=== PATIENT | male | born 1955 | race Caucasian/White ===

== ENCOUNTER 2024-04-28 10:18 | Inpatient (IN) | payer MEDICARE, BC, SELFPAY ==
[2024-04-28] VITALS (24 sets, daily range): BP systolic 110–159; BP diastolic 63–87; BMI 37.8
[2024-04-28] MEDS: NSS 353 ML IV (07:15)
[2024-04-28] MEDS: LOW STRENGTH ASPIRIN 324 MG PO (07:29)
[2024-04-28 07:44] LABS: Glucose - Point of Care 134 mg/dl (70-99)
--- NOTE | 2024-04-28 08:27 | ITS.CL.CATH ---
Tobacco Flavorer - Catheterization
Cardiac Catheterization
Procedure Report:
LEFT HEART CATHETERIZATION
Date of Procedure: April 28, 2024
Procedures performed:
1: Coronary angiography
2: Left ventricular hemodynamic assessment
Primary Care Physician: Dr. Jacques Sandra
Primary Hospice Nurse Practitioner: Dr. Graham Partida
INDICATION: The patient is a 68-year-old man with a past medical history significant for hypertension, wzh-cppsfwc-siwuqfouz diabetes, paroxysmal atrial fibrillation on Xarelto, status post pacemaker placement for tachybradycardia syndrome, obesity,
and ongoing smoking who presents for cardiac catheterization after an abnormal stress test. Xarelto was held for the procedure.
ACCESS: The patient was prepped and draped in usual sterile fashion. A 6 Italian sheath was placed in the right radial artery using the Seldinger over the wire technique.
HEMODYNAMIC FINDINGS (mmHg):
LV(s/d,EDP): 135/18, 21
Ao(s/d,m): 135/82, 104
ANGIOGRAPHIC FINDINGS:
Single-plane Left Ventriculography in MACIAS Projection: Not done. Echocardiogram performed on March 29, 2024 showed a visually estimated ejection fraction of 50 to 55% with no significant valvular disease.
Coronary Angiography:
Dominance: Right
Left Main: Hazy distal 50% stenosis in large caliber vessel.
Left Anterior Descending: The left anterior descending artery is a medium caliber vessel that has moderate nonobstructive luminal irregularities throughout its course. There is a area of proximal aneurysmal disease best appreciated in the MACIAS
caudal projection noted. There appears to be a high diagonal branch which is a medium to large caliber vessel that also has diffuse moderate disease and arises from the the aneurysmal portion of the LAD. The mid LAD has moderate diffuse luminal
irregularities with at worst a smooth 40 to 50% stenosis. The LAD gives rise to several small to medium caliber diagonal branches that appear patent with diffuse luminal irregularity but no clear obstructive disease. The apical LAD provides
collaterals to the distal PDA.
Ramus intermedius: There is a large ramus intermedius branch present that has smooth 40% proximal stenosis but appears to be a reasonable distal target.
Left Circumflex: The circumflex is a small to medium caliber nondominant system that gives rise to 2 major obtuse marginal branches. The first obtuse marginal branch is a medium caliber vessel and has diffuse proximal 70% disease with normal distal
flow. The circumflex terminates in a distal OM 2 which is a larger caliber vessel that has a mid 50% stenosis.
Right Coronary: The right coronary artery is a large-caliber vessel that gives rise to a small caliber posterior descending artery and large posterior left ventricular branch system. The right has an eccentric 90% stenosis in the distal vessel just
beyond the acute margin. There is a small aneurysmal area in the proximal PLV branch. The PLV branch gives 2 large vessels distally which appear to be reasonable surgical targets and have GAVIN-3 flow. The posterior descending artery has a smooth
ostial long 60% stenosis with competitive distal flow in the PDA from the LAD collaterals.
Fluoroscopy Time (min): 2.4
Radiation Dose (mGy): 437
DAP (Gy.cm2): 29
Closure device: None. A TR band was applied for hemostasis at the right wrist.
Complications: None.
ASSESSMENT:
1: Obstructive three-vessel coronary disease including left main disease as described above
CONCLUSIONS and RECOMMENDATIONS:
1: CT surgical evaluation for CABG.
Sergey Jenkins M.D.
Copy to: Dr. Jacques Sandra
[2024-04-28] MEDS: NSS 1000 IV (08:34)
[2024-04-28 08:43] LABS: Glucose - Point of Care 147 mg/dl (70-99)
--- NOTE | 2024-04-28 09:07 | CONSULT.CT ---
Consultation
-
Date/Time Consultation Requested: 04/28 899
Date/Time Consultation Performed: 04/28 906
Requesting Provider: Damon Jenkins MD
Performing Provider: Mara WADE for Daniel SHANKS
Reason for Consultation: CABG Eval
Patient History
Physicians
Family Physician: Dr. Jacques Sandra
Outpatient Inside Tester: Dr. Graham Partida
Inpatient Inside Tester: Gregory
History of Present Illness
68-year-old male with past medical history significant for HTN, voh-fuibtba-dmxihmxmq diabetes, PVI, PAF on Xarelto, tachybradycardia syndrome s/p Biotronik pacemaker placement, obesity, smoker presents on 04/28 for a left heart cath after an
abnormal stress test. Left heart cath revealed multivessel disease and CT surgery was consulted for surgical evaluation.
Past Medical History
Past Medical History: Other
1. Recurrent atrial flutter, status post PVI.
2. History of PAF.
3. PVI on April 07 2017.
4. Sick sinus syndrome status post Biotronik pacemaker.
5. Morbid obesity.
6. Type 2 diabetes.
7. Hyperlipidemia.
8. Ongoing tobacco abuse (1PPD)
9. Presumed obstructive sleep apnea.
10.GERD.
11.Osteoarthritis.
12. [place] palsy
13. Depression 2/2 to passing away from pancreatic cancer and granddaughter having leukemia
Past Surgical History
Past Surgical History: Other
PPM
PVI
Dental History
last visit 2 years ago
Family History
Mother: N/A
Father: N/A
Family Medical History: Other (unknown)
Social History
Alcohol: None
Drug: None
Tobacco: Smoker (1 PPD)
Personal: ( recent )
Living: With Family
Employment: Employed
Allergies
Allergy/AdvReac Type Severity Reaction Status Date / Time
Tsgyilr-NBT-IeK Reductase Allergy myalgias Verified 04/28/24 07:06
Inhibitor
fish Allergy Nausea / Uncoded 04/28/24 07:04
Vomiting
Home Medications
�Medication �Instructions �Recorded �Confirmed �Type
desloratadine 5 mg tablet 5 mg PO DAILYPRN PRN allergies 04/07/17 04/28/24 History
(Clarinex)
diltiazem HCl 360 mg capsule,24 360 mg PO HS 04/07/17 04/28/24 History
hr,extended release
fenofibrate nanocrystallized 145 145 mg PO HS 04/07/17 04/28/24 History
mg tablet
lorazepam 1 mg tablet 1 mg PO BIDPRN PRN anxiety 04/07/17 04/28/24 History
rabeprazole 20 mg tablet,delayed 20 mg PO QPM 04/07/17 04/28/24 History
release (AcipHex)
metformin 1,000 mg tablet 1,000 mg PO BID ##0 04/08/17 04/28/24 Rx
dofetilide 250 mcg capsule 250 mcg PO BID 04/28/24 04/28/24 History
evolocumab 140 mg/mL subcutaneous 140 mg SC Q2W 04/28/24 04/28/24 History
pen injector (Repathdi Shepherd)
famotidine 20 mg tablet 20 mg PO BID 04/28/24 04/28/24 History
fluoxetine 20 mg tablet 20 mg PO DAILY 04/28/24 04/28/24 History
latanoprost 0.005 % eye drops 1 drp ophthalmic (eye) HS 04/28/24 04/28/24 History
montelukast 10 mg tablet 10 mg PO HS 04/28/24 04/28/24 History
pioglitazone 30 mg tablet 30 mg PO HS 04/28/24 04/28/24 History
repaglinide 1 mg tablet 1 mg PO TID 04/28/24 04/28/24 History
rivaroxaban 20 mg tablet (Xarelto) 20 mg PO DAILY 04/28/24 04/28/24 History
Review of Systems
-
History Source: Patient
General: Reports No Symptoms
HEENT: Reports No Symptoms
Respiratory: Reports SOB
Cardiac: Reports Chest Pain
Abdomen/GI: Reports Reflux, Ulcers and Other (H. Pylori)
: Reports No Symptoms
Musculoskeletal: Reports No Symptoms
Skin: Reports No Symptoms
Neurological: Reports Weakness (Arm weakness)
Vascular: Reports No Symptoms
Physical Exam
Vital Signs
Temp 97.7 F 04/28/24 07:06
Temp route: Oral 04/28/24 06:40
Pulse 81 04/28/24 08:25
Blood pressure 132/78 04/28/24 08:25
Blood pressure extremity used: Left upper arm 04/28/24 08:13
Position: Sitting 04/28/24 08:13
MAP (cuff-Aleta Monitor) 96 04/28/24 08:25
SaO2 93 04/28/24 08:25
Oxygen Mode of Delivery Room air 04/28/24 08:43
Can the patient verbally communicate their pain? Yes 04/28/24 08:43
Actual Weight 117.7 kg 04/28/24 07:35
Body Mass Index (BMI) 37.8 04/28/24 07:35
Labs
Lab Results
04/28/24 09:28
APTT 42.5 Sec (23.4-35.0) H 04/28/24 09:28
Diagnostic Studies
LHC results
Coronary Angiography:
Dominance: Right
Left Main: Hazy distal 50% stenosis in large caliber vessel.
Left Anterior Descending: The left anterior descending artery is a medium caliber vessel that has moderate nonobstructive luminal irregularities throughout its course. There is a area of proximal aneurysmal disease best appreciated in the MACIAS
caudal projection noted. There appears to be a high diagonal branch which is a medium to large caliber vessel that also has diffuse moderate disease and arises from the the aneurysmal portion of the LAD. The mid LAD has moderate diffuse luminal
irregularities with at worst a smooth 40 to 50% stenosis. The LAD gives rise to several small to medium caliber diagonal branches that appear patent with diffuse luminal irregularity but no clear obstructive disease. The apical LAD provides
collaterals to the distal PDA.
Ramus intermedius: There is a large ramus intermedius branch present that has smooth 40% proximal stenosis but appears to be a reasonable distal target.
Left Circumflex: The circumflex is a small to medium caliber nondominant system that gives rise to 2 major obtuse marginal branches. The first obtuse marginal branch is a medium caliber vessel and has diffuse proximal 70% disease with normal distal
flow. The circumflex terminates in a distal OM 2 which is a larger caliber vessel that has a mid 50% stenosis.
Right Coronary: The right coronary artery is a large-caliber vessel that gives rise to a small caliber posterior descending artery and large posterior left ventricular branch system. The right has an eccentric 90% stenosis in the distal vessel just
beyond the acute margin. There is a small aneurysmal area in the proximal PLV branch. The PLV branch gives 2 large vessels distally which appear to be reasonable surgical targets and have GAVIN-3 flow. The posterior descending artery has a smooth
ostial long 60% stenosis with competitive distal flow in the PDA from the LAD collaterals.
Exam
General: Well Developed and Well Nourished
HEENT: Moist Mucous Membranes
Neck: Other (WIDE)
Respiratory: Clear
Cardiac: S1/S2 and Regular Rhythm
GI: Soft and Other (Obese)
Rectal: Deferred by Provider
Skin: Warm and Dry
Neuro: AO x 3
Lymph: No Lymphadenopathy
Psych: Calm
Assessment / Plan
-
68-year-old male with past medical history listed above presents to [facility] for an elective left heart cath. Left heart cath revealed multivessel disease and CT surgery was consulted for CABG evaluation.
#CAD
-Patient's case will be discussed with attending physician. Further details regarding surgical timing intervention will be determined after attending physicians full evaluation
-Routine preoperative cardiothoracic surgery orders will be initiated.
-STS risk stratification score will be calculated after preoperative testing is complete
-Continue heparin gtt per cardiology; last dose Xarelto on 04/27
--- NOTE | 2024-04-28 09:32 | PTCARENOTE ---
CV PA at pt bedside speaking to pt and pt's friend Elisha.
[2024-04-28 09:39] LABS: Hemoglobin 13.1 g/dL (13.0-18.0); Mean Corp Hgb Conc. 33.6 g/dL (33.0-37.0); Mean Corpuscular Hgb 30.9 pg (27.0-31.0); Mean Platelet Volume 10.2 fL (7.4-10.4); Platelet Count 303 10^3/uL (130-400); Red Blood Cell Count 4.24 10^6/uL (4.70-6.10); Red Cell Dist. Width 13.4 % (11.5-14.5); White Blood Cell Count 8.2 10^3/uL (4.8-10.8)
[2024-04-28 09:45] LABS: APTT 42.5 Sec (23.4-35.0)
[2024-04-28] MEDS: NOVOLOG FLEXPEN-MODERATE RESISTANCE SC ×2 (13:28→18:01)
--- NOTE | 2024-04-28 13:30 | PTCARENOTE ---
Rec'd report from Darline Fuentes in the [facility] [place] [facility]; Rec'd pt AAOX3 w/no c/o CP or SOB. Pt does report feeling 'anxious' r/t news of needing open heart surgery. Pt's VSS w/HR in the 80's & BP on arrival 141/75. Pt is SR w/occas RAILROAD CROSSING PROTECTION MAINTAINER on telemetry monitoring.
Pt w/ R radial site w/dressing C/D/I w/no signs or symptoms of bleeding or hematoma. Discussed plan of care & oriented pt to . Pt w/call bautista within reach & plan of care ongoing.
[2024-04-28] MEDS: HEPARIN 25000 UNITS/250 ML IV (14:06)
[2024-04-28] MEDS: FLUSH (NSS) 1 FLUSH IV (14:08)
--- NOTE | 2024-04-28 14:56 | CM ---
Reviewed chart. Met with Mr. Boyd to review discharge plans. He states prior to admission he resides with his daughter and three grandchildren in a bi-level home. He has three steps to get to into the home thru the basement, eighteen steps
from the deck and three steps to get in from the front. He states prior to admission he was independent with ambulation and adls. He states he has a bi-pap machine and Nebulizer at home. He states he has a prescription plan with [facility]
order and uses [facility] when needed. He states his spouse fifteen month ago from cancer. He was for 49 years. He states his oldest granddaughter age 21 was diagnosed with Leukemia when she was 20 years old. She had
DNA replacement therapy at [facility] and has been in recovery. He states he sees a psychologist at [facility] for the last three years. He is being worked up for heart surgery. Medical work-up in progress. The discharge plan is to return home
with his family when medically stable.
[2024-04-28] MEDS: PRANDIN 1 MG PO (17:40)
[2024-04-28] MEDS: PROTONIX 40 MG PO (17:40)
[2024-04-28 17:44] LABS: Glucose - Point of Care 141 mg/dl (70-99)
[2024-04-28] MEDS: PEPCID 20 MG PO (20:35)
[2024-04-28] MEDS: TIKOSYN 250 MCG PO (20:35)
--- NOTE | 2024-04-28 21:20 | PTCARENOTE ---
Rec'd at change of shift. VSS, SR on TELE monitor, and AAO*3. Pt denies any pain or discomfort. Heparin infusing at 1400 Units per hour per protocol. R radial site CDI, and pt verbalizes understanding of R limb restriction. Pt updated of plan
of care and resting with call bautista in reach. See flowchart and MAR for full pt assessment and care.
[2024-04-28 21:30] LABS: APTT 35.1 Sec (23.4-35.0)
[2024-04-28 21:43] LABS: Glucose - Point of Care 114 mg/dl (70-99)
[2024-04-28] MEDS: CARDIZEM CD 360 MG PO (23:19)
[2024-04-28] MEDS: TRICOR 145 MG PO (23:19)
[2024-04-28] MEDS: XALATAN OPHTHALMIC SOLUTION 1 DROP BOTH EYES (23:19)
[2024-04-28] MEDS: SINGULAIR 10 MG PO (23:22)
[2024-04-28] MEDS: ACTOS 30 MG PO (23:37)
[2024-04-29 03:25] VITALS: BP 140/74
[2024-04-29 03:48] VITALS: BMI 36.9
[2024-04-29 04:26] LABS: Hematocrit 38.1 % (39.0-52.0); Hemoglobin 13.1 g/dL (13.0-18.0); Mean Corp Hgb Conc. 34.4 g/dL (33.0-37.0); Mean Corpuscular Hgb 31.5 pg (27.0-31.0); Mean Corpuscular Volume 91.6 fL (80.0-94.0); Mean Platelet Volume 10.6 fL (7.4-10.4); Platelet Count 312 10^3/uL (130-400); Red Blood Cell Count 4.16 10^6/uL (4.70-6.10); Red Cell Dist. Width 13.4 % (11.5-14.5); White Blood Cell Count 7.6 10^3/uL (4.8-10.8)
[2024-04-29 04:30] LABS: INR 1.04; PT 14.1 Sec (11.4-14.6)
[2024-04-29 04:39] LABS: Carbon Dioxide 23 mmol/L (22-30)
[2024-04-29 04:50] LABS: ALT (SGPT) 27 U/L (0-50); AST (SGOT) 38 U/L (17-59); Alkaline Phosphatase 85 U/L (38-126); Blood Urea Nitrogen 23 mg/dl (9-20); Calcium 9.7 mg/dl (8.4-10.2); Chloride 104 mmol/L (98-107); Direct Bilirubin 0.1 mg/dl (0.0-0.4); Estimated Creatinine Clearance 110 ml/min; Glucose 131 mg/dl (70-99); HDL Cholesterol 41 mg/dl; LDL Cholesterol, Calculated 69 mg/dl; Potassium 4.3 mmol/L (3.5-5.1); Sodium 136 mmol/L (135-145); Total Bilirubin 0.4 mg/dl (0.2-1.3); Total Cholesterol 142 mg/dl (50-199); Total Protein 6.6 g/dl (6.3-8.2); Triglyceride 163 mg/dl (10-149); Very Low Density Lipoprotein 32 mg/dl (0-30); eGFR > 60.00
[2024-04-29] MEDS: HEPARIN 25000 UNITS/250 ML IV ×2 (06:41→22:04)
[2024-04-29 07:07] VITALS: BP 120/74
[2024-04-29] MEDS: PROZAC 20 MG PO (08:01)
[2024-04-29] MEDS: PEPCID 20 MG PO ×2 (08:01→20:08)
[2024-04-29] MEDS: TIKOSYN 250 MCG PO ×2 (08:01→20:08)
[2024-04-29] MEDS: PRANDIN 1 MG PO ×3 (08:02→17:35)
[2024-04-29 08:36] LABS: Glucose - Point of Care 139 mg/dl (70-99)
[2024-04-29] MEDS: NOVOLOG FLEXPEN-MODERATE RESISTANCE SC (09:21)
--- NOTE | 2024-04-29 09:58 | W.PN.CARDCBS ---
Addendum entered and electronically signed by Clayton Arreaga MD 04/29/24 18:01:
No Chest pain or SOB
RRR, Nl S1 and S2, no S3 or S4
Lungs are clear B/L
Assessment:
Abnormal outpatient stress test 04/14/2024
Multi vessel CAD by cath 04/28/24
Hazy distal LM stenosis, LAD with moderate nonobstructive CAD and proximal aneurysmal disease, ramus with smooth 40% proximal stenosis that appears to be a reasonable distal target, OM�1 with proximal 70% disease and normal distal flow, distal OM�2
with mid 50% stenosis, RCA is a large-caliber with 90% eccentric stenosis in the distal vessel by cath 04/28/2024HTN
DM 2
Paroxysmal Afib
s/p PVI 28mm cryoballoon 03/2017Paroxysmal typical atrial flutter
PPM, Biotronik 10/2016
Device check [facility] office showed primarily SR, not pacer dependent, battery longevity listed at 55% 04/20/2024Hyperlipidemia
Ongoing tobacco abuse
Smoked 1 PPD since age 13Presumed obstructive sleep apnea
ECHO 04/29/24:
Normal left ventricular size, wall thickness and systolic function. No regional wall motion abnormalities are seen. LV ejection fraction is 50-55%.
Normal right ventricular size and function.
No significant valvular dz.
Dilated aortic root. Sinus of Valsalva measures 3.9 cm. Sinotubular junction measures 2.7 cm. Normal ascending aorta.
Recommendations:
He is symptom free at present
Continue heparin infusion
CT surgical evaluation for CABG is ongoing
Nl LV function and no significant valvular dz by echo
Last dose Xarelto on 04/[address] surgical consideration for JULIANNE clipping as well as MAZE given ongoing arrhythmias requiring dofetilide
Ongoing tobacco abuse (Smoked 1 PPD since age 13) as well as presumed obstructive sleep apnea
PFTs are pending
Original Note:
Today's Communication / Plan
-
Heparin gtt renewed
Check echo
51 min in coordination of care as noted
Impression / Plan
-
PCP: Dr. Jacques Sandra
Cardiology: ATC
Impression:
Abnormal outpatient stress test 04/14/2024
MV CAD by cath 04/28/24
Hazy distal LM stenosis, LAD with moderate nonobstructive CAD and an area of proximal aneurysmal disease, ramus with smooth 40% proximal stenosis that appears to be a reasonable distal target, OM�1 with proximal 70% disease and normal distal flow,
distal OM�2 with mid 50% stenosis, RCA is a large-caliber with 90% eccentric stenosis in the distal vessel by cath 04/28/2024
HTN
DM 2
Paroxysmal Afib
s/p PVI 28mm cryoballoon 03/2017
Paroxysmal typical atrial flutter
PPM, Biotronik 10/2016
Device check [facility] office showed primarily SR, not pacer dependent, battery longevity listed at 55% 04/20/2024
Hyperlipidemia
Ongoing tobacco abuse
Smoked 1 PPD since age 13
Presumed obstructive sleep apnea
GERD
Osteoarthritis
[place]gu[place]'s palsy
Lexiscan stress test 04/14/2024: Modified Prem protocol and only reached 80% MPHR with 3.4 METS of activity, chest pain with stress, predominantly reversible, moderate intensity defect in the basal to apical inferior segments suggesting RCA ischemia
Echo 03/29/24: Normal biventricular systolic function, unable to estimate RVSP, no /AR
Echo 04/29/24: Study pending
Plan:
Patient came to for an elective LHC on 04/28/2024 after an abnormal outpatient stress test through [facility]C at [facility] on 04/14/2024. On cardiac cath patient was found to have MV CAD as outlined above. CT surgery is now consulted.
-Records from the ATC office reviewed and summarized above by me. Last echo was 03/29/2024, will repeat echo 04/29/2024, ordered by me
-CT surgery consult reviewed and patient undergoing testing and waiting to talk to surgeon 04/29/2024
-LDL 69 and outpatient dose of fenofibrate 145 mg at bedtime has been continued. Patient is also on Repatha 140 mg SQ every 2 weeks and reports that he previously had myalgias with all statin medications.
-ECG from 04/29/2024 reviewed by me is atrial paced and it looks like SR.
-Patient has a history of paroxysmal A-fib with previous PVI in 2018 but also history of typical atrial flutter. Patient is currently on dofetilide 250 mcg twice daily and QTc 436 ms by ECG 04/29/2024
-Outpatient dose of Xarelto 20 mg daily has been on hold leading up to cardiac cath. Patient currently ordered heparin gtt, renewed by me 04/29/24. There is no known history of thromboembolic event
-Patient has smoked 1 PPD since age 13. PFTs pending.
HPI: The patient is a 68-year-old man with a past medical history significant for hypertension, nnd-zkyhhbz-rrkzcpalk diabetes, paroxysmal atrial fibrillation on Xarelto, status post pacemaker placement for tachybradycardia syndrome, obesity, and
ongoing smoking who presents for cardiac catheterization after an abnormal stress test. Xarelto was held for the procedure.
Progress Note - Surface Miner
Subjective
Date of Service: April 29, 2024
No chest pain
Objective
Labs:
04/29/24 03:41
04/29/24 03:41
Labs
Hgb 13.1 g/dL (13.0-18.0) 04/29/24 03:41
Hct 38.1 % (39.0-52.0) L 04/29/24 03:41
Plt Count 312 10^3/uL (130-400) 04/29/24 03:41
PT 14.1 Sec (11.4-14.6) 04/29/24 03:41
INR 1.04 04/29/24 03:41
APTT 36.0 Sec (23.4-35.0) H 04/29/24 03:41
Sodium 136 mmol/L (135-145) 04/29/24 03:41
Potassium 4.3 mmol/L (3.5-5.1) 04/29/24 03:41
BUN 23 mg/dl (9-20) H 04/29/24 03:41
Creatinine 0.8 mg/dL (0.7-1.3) 04/29/24 03:41
Glucose 131 mg/dl (70-99) H 04/29/24 03:41
Vital Signs and I&O:
Vital Signs
Temp Pulse Resp BP Pulse Ox
98 F 69 20 140/74 94
04/29/24 07:07 04/29/24 05:00 04/29/24 07:07 04/29/24 03:25 04/29/24 07:07
Vital Signs
Temp Pulse Resp BP Pulse Ox
98 F 69 20 140/74 94
04/29/24 07:07 04/29/24 05:00 04/29/24 07:07 04/29/24 03:25 04/29/24 07:07
Intake & Output
04/27/24 04/28/24 04/29/24 04/30/24
06:59 06:59 06:59 06:59
Intake Total 2973 / 2973
Output Total 1060 / 1060
Balance 1912
Physical Exam
Physical Exam
GEN: AAOx3
HEENT: MMM
LUNGS: RA. No audible wheeze
CV: A paced on tele. Looks like SR. No murmur
ABD: ND
EXT: No edema B/L
NEURO: Gross non-focal
SKIN: No rash
[2024-04-29 10:25] LABS: Glycohemoglobin (HgbA1c) 6.7 % (4.0-5.6)
[2024-04-29 11:29] VITALS: BP 142/73
--- NOTE | 2024-04-29 12:21 | CM ---
Reviewed chart. Met with Mr. Boyd to review discharge plans. He states he is feeling okay. Prior to admission his daughter and three grandchildren reside with him in a bi-level home with three steps to enter. He has eighteen steps to get to
get into the home from the deck. Prior to admission he was independent with ambulation and adls. He has a bi-pap machine and Nebulizer at home. He has a prescription plan with [facility] and uses [facility] when needed. He states
his daughter and three grandchildren will be around to assist in his care if needed .He also states a friend who is an RN has been stopping to see him everyday and she will continue to do so after surgery. Gave him the Cardiothoracic Surgery
Educational Booklet. Medical work-up in progress. The discharge plan s to return home with his daughter, three grandchildren, RN friend checking on him when medically stable.
[2024-04-29 12:43] LABS: APTT 47.9 Sec (23.4-35.0)
[2024-04-29] MEDS: NOVOLOG FLEXPEN-MODERATE RESISTANCE 1 UNITS SC ×2 (13:45→18:07)
[2024-04-29 13:50] LABS: Glucose - Point of Care 208 mg/dl (70-99)
[2024-04-29 17:22] VITALS: BP 142/99
[2024-04-29] MEDS: PROTONIX 40 MG PO (17:35)
[2024-04-29 17:51] LABS: Glucose - Point of Care 197 mg/dl (70-99)
[2024-04-29 19:01] VITALS: BP 143/75
[2024-04-29 19:45] LABS: APTT 63.2 Sec (23.4-35.0)
[2024-04-29 22:01] LABS: Glucose - Point of Care 172 mg/dl (70-99)
[2024-04-29] MEDS: SINGULAIR 10 MG PO (22:06)
[2024-04-29] MEDS: TRICOR 145 MG PO (22:06)
[2024-04-29] MEDS: ACTOS 30 MG PO (22:06)
[2024-04-29] MEDS: CARDIZEM CD 360 MG PO (22:07)
[2024-04-29 22:09] VITALS: BP 156/93
[2024-04-29] MEDS: XALATAN OPHTHALMIC SOLUTION 1 DROP BOTH EYES (22:12)
[2024-04-30 02:07] LABS: Hematocrit 37.6 % (39.0-52.0); Hemoglobin 12.8 g/dL (13.0-18.0); Mean Corpuscular Hgb 30.9 pg (27.0-31.0); Mean Corpuscular Volume 90.8 fL (80.0-94.0); Platelet Count 318 10^3/uL (130-400); Red Blood Cell Count 4.14 10^6/uL (4.70-6.10); Red Cell Dist. Width 13.4 % (11.5-14.5); White Blood Cell Count 8.8 10^3/uL (4.8-10.8)
[2024-04-30 02:18] LABS: APTT 101.2 Sec (23.4-35.0)
[2024-04-30 02:50] VITALS: BP 110/66
[2024-04-30 02:52] LABS: Glucose - Point of Care 143 mg/dl (70-99)
[2024-04-30 02:54] VITALS: BMI 37.0
--- NOTE | 2024-04-30 06:09 | PTCARENOTE ---
NSR with Apaced on monitor. Pt denies pain or SOB. Heparin gtt adjusted per protocol. Pt using own CPAP at HS. Pt independent in the room.
[2024-04-30 07:05] VITALS: BP 128/74
[2024-04-30 07:08] LABS: Glucose - Point of Care 147 mg/dl (70-99)
--- NOTE | 2024-04-30 07:21 | W.PN.UPDATE ---
Update Note
Progress Note Update
Procedure Type:�Isolated CABG
Perioperative Outcome Estimate %
Operative Mortality 0.959%
Morbidity & Mortality 5.72%
Stroke 0.461%
Renal Failure 0.693%
Reoperation 1.37%
Prolonged Ventilation 3.68%
Deep Sternal Wound Infection 0.418%
Long Hospital Stay (>14 days) 4.03%
Short Hospital Stay (<6 days)* 42.6%
Clinical Summary
Planned Surgery: Isolated CABG, Urgent, First cardiovascular surgery
Demographics: 68 year old, White, male, 118kg, 177cm, BMI: 37.7 kg/m�
Lab Values: Creatinine: 0.8 mg/dL, Hematocrit: 38.1%, WBC Count: 7.6 10�/�L, Platelet Count: 497166 cells/�L
PreOp Medications: Oral diabetes control
Substance Abuse: Current smoker
Risk Factors / Comorbidities: Diabetes Mellitus
Pulmonary RF: Mild CLD, Sleep Apnea
Coronary Artery Disease: 3 vessels diseased, Unstable Angina
Valve Disease: Trivial/Trace TR
Arrhythmia: Remote A-fib
Tentative Surgery date is Friday05/03/[address] Sanchez
[2024-04-30] MEDS: NOVOLOG FLEXPEN-MODERATE RESISTANCE SC ×2 (07:57→14:36)
--- NOTE | 2024-04-30 08:56 | PTCARENOTE ---
Assumed care of pt from prev nsg shift; pt drowsy but easily arousable, AAOx3 w/no c/o CP or SOB. Pt w/VS stable w/HR in the 60's & BP 128/74 this AM. Pt is A-paced on telemetry monitoring. Pt w/ R radial site w/dressing C/D/I w/no signs or symptoms
of bleeding or hematoma. Pt w/call bautista within reach & plan of care ongoing.
[2024-04-30 09:03] LABS: APTT 112.1 Sec (23.4-35.0)
--- NOTE | 2024-04-30 09:29 | CM ---
Reviewed chart. Met with Mr. Boyd to review discharge plans. Prior to admission his daughter, and his three grandchildren reside with him in a bi-level home. He has three steps to enter the home from the front and eighteen steps from the deck.
Prior to admission he was independent with ambulation and adls. He has a Bi-pap Machine and Nebulizer at home. He has a prescription plan with [facility] and uses [facility] when needed. He states his daughter and grandchildren
will be around to assist in this care if needed. He also has a RN friend who stops by on a regular basis. Medical work-up in progress. The discharge plan is to return home with his daughter and grandchildren with a home visit by the Transitional
Care Nurse when medically stable.
We reviewed pre-op and post-op routines. We briefly reviewed the shower instructions. We reviewed restrictions including sternal precautions and driving restrictions. We discussed a home visit by the Transitional Care Nurse. He is agreeable to a
home visit. He already has the Cardiothoracic Surgery Educational Booklet. The plan is for CABG on Friday05/03/24.
[2024-04-30] MEDS: TIKOSYN 250 MCG PO ×2 (09:53→20:17)
[2024-04-30] MEDS: PRANDIN 1 MG PO ×2 (09:53→16:48)
[2024-04-30] MEDS: PEPCID 20 MG PO ×2 (09:53→20:17)
[2024-04-30] MEDS: PROZAC 20 MG PO (09:53)
--- NOTE | 2024-04-30 10:18 | W.PN.CARDCBS ---
Addendum entered and electronically signed by Andrea Villa MD 04/30/24 14:43:
I saw and examined the patient.
The [employer] Refrig[employer] Technician's note was reviewed and I agree with the note.
Comment: Briefly, 68-year-old man who presents following abnormal outpatient stress test for coronary angiography and was found to have multivessel CAD
Evaluated by CT surgery with tentative plan for CABG
Currently asymptomatic, not reporting any discomfort today
Aspirin 81mg daily for CAD
Statin intolerant by history
Maintained on Xarelto as an outpatient for history of paroxysmal A-fib and has been transitioned to heparin drip
Rest per Anna Marroquin
Original Note:
Today's Communication / Plan
-
Continue heparin gtt
No chest pain.
Tentatively planed for CABG Friday, 05/03.
Impression / Plan
-
PCP: Dr. Jacques Sandra
Cardiology: Dr. Philip Partida ([facility] Cardiology)
Impression:
Abnormal outpatient stress test 04/14/2024
MV CAD by cath 04/28/24
Hazy distal LM stenosis, LAD with moderate nonobstructive CAD and an area of proximal aneurysmal disease, ramus with smooth 40% proximal stenosis that appears to be a reasonable distal target, OM�1 with proximal 70% disease and normal distal flow,
distal OM�2 with mid 50% stenosis, RCA is a large-caliber with 90% eccentric stenosis in the distal vessel by cath 04/28/2024
HTN
DM 2
Paroxysmal Afib
s/p PVI 28mm cryoballoon 03/2017
Paroxysmal typical atrial flutter
PPM, Biotronik 10/2016
Device check ATC office showed primarily SR, not pacer dependent, battery longevity listed at 55% 04/20/2024
Hyperlipidemia
Ongoing tobacco abuse
Smoked 1 PPD since age 13
Presumed obstructive sleep apnea
GERD
Osteoarthritis
Olguin's palsy
Lexiscan stress test 04/14/2024: Modified Prem protocol and only reached 80% MPHR with 3.4 METS of activity, chest pain with stress, predominantly reversible, moderate intensity defect in the basal to apical inferior segments suggesting RCA ischemia
Echo 03/29/24: Normal biventricular systolic function, unable to estimate RVSP, no /AR
Echo 04/29/2024: EF 50-55%, aortic sclerosis, trace TR, estimated PAP 30-35mmHg, dilated aortic root, sinus of valsalva measures 3.9cm
Plan:
-Patient came to for an elective LHC on 04/28/2024 after an abnormal outpatient stress test through ATC at [facility] on 04/14/2024. On cardiac cath patient was found to have MV CAD as outlined above.
-CT surgery evaluation ongoing. Plan is tentatively to go to OR 05/03/2024.
-Echo 04/29 with preserved EF, no significant valvular disease as noted above.
-No complaints, feeling well overnight. No chest pain or SOB.
-LDL 69. Continues on fenofibrate. h/o myalgia w/ all statin medications, on Repatha as OP, would continue.
-Known h/o paroxysmal afib w/ prior PVI in 2018. No arrhythmias noted on tele.
-Continue dofetilide 250 mcg BID and cardizem cd 360mg daily.
-Xarelto on hold for cath/surgery. Continue heparin gtt.
-h/o significant anxiety. Takes lorazepam 1mg prn at home. This has been ordered.
HPI: The patient is a 68-year-old man with a past medical history significant for hypertension, ced-wvnzqyl-udrlblogx diabetes, paroxysmal atrial fibrillation on Xarelto, status post pacemaker placement for tachybradycardia syndrome, obesity, and
ongoing smoking who presents for cardiac catheterization after an abnormal stress test. Xarelto was held for the procedure.
Progress Note - Accountant Controller
Subjective
Date of Service: April 30, 2024
Feeling well. No complaints.
Objective
Labs:
04/30/24 01:59
04/29/24 03:41
Labs
Hgb 12.8 g/dL (13.0-18.0) L 04/30/24 01:59
Hct 37.6 % (39.0-52.0) L 04/30/24 01:59
Plt Count 318 10^3/uL (130-400) 04/30/24 01:59
PT 14.1 Sec (11.4-14.6) 04/29/24 03:41
INR 1.04 04/29/24 03:41
APTT 112.1 Sec (23.4-35.0) H 04/30/24 08:35
Sodium 136 mmol/L (135-145) 04/29/24 03:41
Potassium 4.3 mmol/L (3.5-5.1) 04/29/24 03:41
BUN 23 mg/dl (9-20) H 04/29/24 03:41
Creatinine 0.8 mg/dL (0.7-1.3) 04/29/24 03:41
Glucose 131 mg/dl (70-99) H 04/29/24 03:41
Vital Signs and I&O:
Vital Signs
Temp Pulse Resp BP Pulse Ox
97.8 F 64 20 128/74 93
04/30/24 07:08 04/30/24 07:05 04/30/24 07:08 04/30/24 07:05 04/30/24 07:08
Vital Signs
Temp Pulse Resp BP Pulse Ox
97.8 F 64 20 128/74 93
04/30/24 07:08 04/30/24 07:05 04/30/24 07:08 04/30/24 07:05 04/30/24 07:08
Intake & Output
04/28/24 04/29/24 04/30/24 05/01/24
06:59 06:59 06:59 06:59
Intake Total 2973 / 2973
Output Total 1060 / 1060
Balance 1913 / 1913
Physical Exam
Physical Exam
GEN: AAOx3
HEENT: MMM
LUNGS: RA. No audible wheeze
CV: Reg, no murmur, rubs, or gallops
EXT: No clubbing, cyanosis, or edema B/L
NEURO: Gross non-focal
SKIN: Warm, dry, no rash
[2024-04-30] MEDS: HEPARIN 25000 UNITS/250 ML IV ×2 (10:39→23:01)
[2024-04-30 11:39] VITALS: BP 135/81
[2024-04-30 14:22] LABS: Glucose - Point of Care 195 mg/dl (70-99)
[2024-04-30] MEDS: PRANDIN PO (14:37)
[2024-04-30 14:59] VITALS: BP 132/62
[2024-04-30] MEDS: ASPIR LOW (ENTERIC COATED) 81 MG PO (16:08)
[2024-04-30 16:37] LABS: APTT 77.6 Sec (23.4-35.0)
[2024-04-30] MEDS: PROTONIX 40 MG PO (16:48)
[2024-04-30 18:34] LABS: Glucose - Point of Care 228 mg/dl (70-99)
[2024-04-30] MEDS: NOVOLOG FLEXPEN-MODERATE RESISTANCE 3 UNITS SC (18:35)
[2024-04-30 19:17] VITALS: BP 120/72
[2024-04-30 20:49] LABS: Glucose - Point of Care 195 mg/dl (70-99)
--- NOTE | 2024-04-30 21:02 | PTCARENOTE ---
Patient received at change of shift resting in the chair. Heparin gtt infusing at 1900units/hr. Patient offers no complaints at this time except for some anxiety regarding the reason for this admission. Plan of care discussed with patient, questions
answered. Sinus rhythm with some PVCs on the monitor. Patient on room air currently, 95% oxygen saturation. Right radial cath site soft to palpation, gauze C/D/I. Call bautista within reach. Care ongoing.
[2024-04-30 22:18] VITALS: BP 139/70
[2024-04-30] MEDS: TRICOR 145 MG PO (22:19)
[2024-04-30] MEDS: CARDIZEM CD 360 MG PO (22:19)
[2024-04-30] MEDS: SINGULAIR 10 MG PO (22:19)
[2024-04-30] MEDS: ACTOS 30 MG PO (22:19)
[2024-04-30 22:47] LABS: APTT 84.3 Sec (23.4-35.0)
[2024-04-30] MEDS: XALATAN OPHTHALMIC SOLUTION 1 DROP BOTH EYES (23:05)
[2024-05-01 03:01] VITALS: BMI 37.3
[2024-05-01 03:03] VITALS: BP 125/66
[2024-05-01 03:30] LABS: Glucose - Point of Care 232 mg/dl (70-99)
[2024-05-01 03:58] LABS: APTT 90.4 Sec (23.4-35.0)
[2024-05-01 04:21] LABS: Blood Urea Nitrogen 22 mg/dl (9-20); Calcium 9.4 mg/dl (8.4-10.2); Carbon Dioxide 22 mmol/L (22-30); Chloride 102 mmol/L (98-107); Estimated Creatinine Clearance 110 ml/min; Glucose 218 mg/dl (70-99); Potassium 4.4 mmol/L (3.5-5.1); Sodium 136 mmol/L (135-145); eGFR > 60.00
--- NOTE | 2024-05-01 07:23 | W.PN.CARDCBS ---
Addendum entered and electronically signed by Clayton Arreaga MD 05/01/24 09:55:
Patient seen, interviewed and examined by me.
He remains pain-free.
Well-appearing, no acute distress
Regular rate and rhythm with normal S1 and S2, no S3 no S4. There is a grade 1/6 apical holosystolic murmur and no rubs. PMI is normally placed.
Lungs are clear to auscultation bilaterally without wheezes rales or rhonchi.
Abdomen soft nontender nondistended with normoactive bowel sounds
Extremities show trace pretibial edema bilaterally no clubbing or cyanosis.
Neurologic exam is grossly nonfocal.
Acute coronary syndrome with NSTEMI and peak troponin of 0.683
He remains pain-free in SR (Atrial paced) and with stable blood pressure
He is awaiting coronary artery bypass grafting surgery planned for Friday after Xarelto washout
Maintain IV heparin.
Original Note:
Today's Communication / Plan
-
Continue heparin gtt
Plan is for CABG on Friday, 05/03
Impression / Plan
-
PCP: Dr. Jacques Sandra
Cardiology: Dr. Philip Partida ([facility] Cardiology)
Impression:
Abnormal outpatient stress test 04/14/2024
MV CAD by cath 04/28/24
Hazy distal LM stenosis, LAD with moderate nonobstructive CAD and an area of proximal aneurysmal disease, ramus with smooth 40% proximal stenosis that appears to be a reasonable distal target, OM�1 with proximal 70% disease and normal distal flow,
distal OM�2 with mid 50% stenosis, RCA is a large-caliber with 90% eccentric stenosis in the distal vessel by cath 04/28/2024
HTN
DM 2
Paroxysmal Afib
s/p PVI 28mm cryoballoon 03/2017
Paroxysmal typical atrial flutter
PPM, Biotronik 10/2016
Device check ATC office showed primarily SR, not pacer dependent, battery longevity listed at 55% 04/20/2024
Hyperlipidemia
Ongoing tobacco abuse
Smoked 1 PPD since age 13
Presumed obstructive sleep apnea
GERD
Osteoarthritis
Olguin's palsy
Lexiscan stress test 04/14/2024: Modified Prem protocol and only reached 80% MPHR with 3.4 METS of activity, chest pain with stress, predominantly reversible, moderate intensity defect in the basal to apical inferior segments suggesting RCA ischemia
Echo 03/29/24: Normal biventricular systolic function, unable to estimate RVSP, no /AR
Echo 04/29/2024: EF 50-55%, aortic sclerosis, trace TR, estimated PAP 30-35mmHg, dilated aortic root, sinus of valsalva measures 3.9cm
Plan:
-Patient came to for an elective LHC on 04/28/2024 after an abnormal outpatient stress test through ATC at [facility] on 04/14/2024. On cardiac cath patient was found to have MV CAD as outlined above.
-Continues to be chest pain free and has no current complaints. Denies any SOB or dizziness.
-CT surgery following and plan is tentatively to go to OR 05/03/2024.
-Echo 04/29 with preserved EF, no significant valvular disease as noted above.
-Carotid US with no significant stenosis.
-LDL 69. Continues on fenofibrate. h/o myalgia w/ all statin medications. On Repatha as OP, would continue.
-Known h/o paroxysmal afib w/ prior PVI in 2018. Continue dofetilide 250 mcg BID and cardizem cd 360mg daily.
-Xarelto on hold for cath/surgery. Continue heparin gtt.
HPI: The patient is a 68-year-old man with a past medical history significant for hypertension, dfh-exzcicj-qlzbbaxji diabetes, paroxysmal atrial fibrillation on Xarelto, status post pacemaker placement for tachybradycardia syndrome, obesity, and
ongoing smoking who presents for cardiac catheterization after an abnormal stress test. Xarelto was held for the procedure.
Progress Note - Bus Cleaner
Subjective
Date of Service: May 01, 2024
Feeling well. No chest pain, SOB, or dizziness.
Objective
Labs:
04/30/24 01:59
05/01/24 03:19
Labs
Hgb 12.8 g/dL (13.0-18.0) L 04/30/24 01:59
Hct 37.6 % (39.0-52.0) L 04/30/24 01:59
Plt Count 318 10^3/uL (130-400) 04/30/24 01:59
PT 14.1 Sec (11.4-14.6) 04/29/24 03:41
INR 1.04 04/29/24 03:41
APTT 90.4 Sec (23.4-35.0) H 05/01/24 03:19
Sodium 136 mmol/L (135-145) 05/01/24 03:19
Potassium 4.4 mmol/L (3.5-5.1) 05/01/24 03:19
BUN 22 mg/dl (9-20) H 05/01/24 03:19
Creatinine 0.8 mg/dL (0.7-1.3) 05/01/24 03:19
Glucose 218 mg/dl (70-99) H 05/01/24 03:19
Vital Signs and I&O:
Vital Signs
Temp Pulse Resp BP Pulse Ox
98.2 F 66 16 125/66 94
05/01/24 03:01 05/01/24 06:00 05/01/24 03:01 05/01/24 03:03 05/01/24 03:01
Vital Signs
Temp Pulse Resp BP Pulse Ox
98.2 F 66 16 125/66 94
05/01/24 03:01 05/01/24 06:00 05/01/24 03:01 05/01/24 03:03 05/01/24 03:01
Intake & Output
01/04/30/24 05/01/24 05/02/24
06:59 06:59 06:59 06:59
Intake Total 297 / 2973 1188 / 1188
Output Total 1060 / 1060
Balance 1912 1188 / 1188
Physical Exam
Physical Exam
GEN: AAOx3, NAD
HEENT: MMM
LUNGS: CTA b/l, no wheezes/rales
CV: Reg, no murmur, rubs, or gallops
EXT: No clubbing, cyanosis, or edema B/L
NEURO: Gross non-focal
SKIN: Warm, dry, no rash
[2024-05-01 08:15] VITALS: BP 101/65
--- NOTE | 2024-05-01 08:28 | PTCARENOTE ---
Assumed care of pt from prev nsg shift; pt drowsy but easily arousable, AAOx3 w/no c/o CP or SOB. Pt w/VS stable w/HR in the 60's & BP 101/64 this AM. Pt is A-paced on telemetry monitoring. Pt w/ R radial site WOOL DYER w/no signs or symptoms of bleeding
or hematoma. Pt's IV Heparin drip infusing as ordered through patent R FA IV line. Pt w/call bautista within reach & plan of care ongoing.
[2024-05-01 09:09] LABS: Glucose - Point of Care 166 mg/dl (70-99)
[2024-05-01] MEDS: NOVOLOG FLEXPEN-MODERATE RESISTANCE 1 UNITS SC (10:23)
[2024-05-01] MEDS: PRANDIN 1 MG PO ×2 (10:23→18:38)
[2024-05-01] MEDS: ASPIR LOW (ENTERIC COATED) 81 MG PO (10:23)
[2024-05-01] MEDS: TIKOSYN 250 MCG PO ×2 (10:24→20:27)
[2024-05-01] MEDS: PROZAC 20 MG PO (10:24)
[2024-05-01] MEDS: PEPCID 20 MG PO ×2 (10:24→20:27)
[2024-05-01 11:37] VITALS: BP 118/67
[2024-05-01] MEDS: HEPARIN 25000 UNITS/250 ML IV (12:17)
[2024-05-01] MEDS: NOVOLOG FLEXPEN-MODERATE RESISTANCE SC ×2 (12:37→19:44)
[2024-05-01] MEDS: PRANDIN PO (12:38)
[2024-05-01 15:36] VITALS: BP 124/70
[2024-05-01 15:41] LABS: Glucose - Point of Care 142 mg/dl (70-99)
[2024-05-01 17:56] LABS: Glucose - Point of Care 169 mg/dl (70-99)
[2024-05-01] MEDS: PROTONIX 40 MG PO (18:39)
[2024-05-01 19:02] VITALS: BP 133/68
--- NOTE | 2024-05-01 20:11 | PTCARENOTE ---
Continued care of pt from this AM; Pt AAOx3 w/no c/o pain or SOB. Assessment unchanged from this RN's earlier assessment. Pt continues to be very anxious re: upcoming procedure; pt's questions answered and emotional support provided to pt. Pt also
requesting info for his close family friend, Elisha to be able to be the person called after surgery. Elisha is a nurse and has been the pt's primary support person since his passed May 2023. Authorization to release medical records form
given to pt for him to add Elisha, so that the Drs may give her updates post-operatively. Pt w/no additional needs at this time.
[2024-05-01 21:13] LABS: Glucose - Point of Care 193 mg/dl (70-99)
[2024-05-01] MEDS: ACTOS 30 MG PO (22:31)
[2024-05-01] MEDS: CARDIZEM CD 360 MG PO (22:31)
[2024-05-01] MEDS: TRICOR 145 MG PO (22:32)
[2024-05-01] MEDS: SINGULAIR 10 MG PO (22:32)
[2024-05-01] MEDS: XALATAN OPHTHALMIC SOLUTION 1 DROP BOTH EYES (22:32)
[2024-05-01] MEDS: TYLENOL 650 MG PO (22:34)
[2024-05-01 22:57] VITALS: BP 119/65
[2024-05-02] MEDS: HEPARIN 25000 UNITS/250 ML IV ×2 (00:05→12:09)
[2024-05-02 04:10] VITALS: BP 116/67
[2024-05-02 04:34] VITALS: BMI 37.4
[2024-05-02 04:40] LABS: Hemoglobin 12.1 g/dL (13.0-18.0); Mean Corp Hgb Conc. 33.6 g/dL (33.0-37.0); Mean Corpuscular Hgb 30.7 pg (27.0-31.0); Mean Corpuscular Volume 91.4 fL (80.0-94.0); Mean Platelet Volume 10.4 fL (7.4-10.4); Platelet Count 309 10^3/uL (130-400); Red Blood Cell Count 3.94 10^6/uL (4.70-6.10); Red Cell Dist. Width 13.3 % (11.5-14.5); White Blood Cell Count 7.2 10^3/uL (4.8-10.8)
[2024-05-02 04:56] LABS: APTT 105.2 Sec (23.4-35.0)
[2024-05-02 05:03] LABS: Blood Urea Nitrogen 19 mg/dl (9-20); Calcium 9.3 mg/dl (8.4-10.2); Carbon Dioxide 22 mmol/L (22-30); Chloride 103 mmol/L (98-107); Estimated Creatinine Clearance > 125 ml/min; Glucose 143 mg/dl (70-99); Potassium 4.2 mmol/L (3.5-5.1); Sodium 136 mmol/L (135-145); eGFR > 60.00
--- NOTE | 2024-05-02 06:04 | W.PN.CT ---
Today's Communication / Plan
-
Plan:
-Cont. current medical management per primary team
-Cont. current meds (ASA, Heparin gtt, Tikosyn, Cardizem Cd, Tricor)
-Xarelto washout
-Ongoing preop workup
-For CABG/MAZE/JULIANNE clip by Dr. Sanchez on Friday05/03/24
-Will d/c heparin gtt aircraft detail draftsperson to OR
-Hold oral diabetic meds on day of surgery
-Will cont. to closely monitor
Assessment / Plan
-
Assessment:
-Severe 3v CAD/50% distal LM
-Abnormal stress test
-LVEF 50-55%
-PAF S/P LA mapping/ablation 04/07/17
-SSS S/P Biotronik PPM, 10/2016
-HTN
-HLD
-T2DM (hgb A1C 6.7)
-Class 2 obesity (BMI 37.3)
-Suspected MILAD
-Active tobacco use (1ppd since age 13)
-GERD.
-Osteoarthritis.
-[place] palsy
-Depression 2/2 to passing away from pancreatic cancer and granddaughter having leukemia
Discussed patient care with: Cardiology, Nursing, Pharmacy and Care Team
Subjective
-
Date of Service: May 02, 2024
No issues overnight. Denies CP/SOB
Objective Data
-
Lab Results
05/02/24 04:17
05/02/24 04:17
PT 14.1 Sec (11.4-14.6) 04/29/24 03:41
INR 1.04 04/29/24 03:41
APTT 105.2 Sec (23.4-35.0) H 05/02/24 04:17
Vital Signs
Vital Signs
Temp Pulse Resp BP Pulse Ox
97.9 F 67 20 116/67 95
05/02/24 04:09 05/02/24 04:10 05/02/24 04:09 05/02/24 04:10 05/02/24 04:10
CT Intake/Output/Weight
05/01/24 05/01/24 05/02/24
06:59 18:59 06:59
Intake Total 708 / 1188 1160 / 1160
Balance 708 / 1188 1160 / 1160
SaO2: 95
Physical Exam
-
General: Awake, Oriented and AOx3
Cardiovascular: Regular rate & rhythm and No Murmurs
Respiratory: Clear
Extremities: Other (+trace edema)
Data Reviewed
-
Lab Results: Results Reviewed
Medications: Active Meds Reviewed
Chest X-Ray: Report Reviewed and Image Reviewed
ECG: Report Reviewed and Image Reviewed
[2024-05-02 06:51] VITALS: BP 116/65
--- NOTE | 2024-05-02 06:54 | W.PN.UPDATE ---
Update Note
Progress Note Update
CARDIAC SURGERY ATTENDING:
It was my pleasure to have a long conversation with Mr. Filipe Boyd this past Friday. We reviewed his coronary pathology and history of PAF. We discussed the proposed operative interventions, reviewed the periprocedural risks (including, but
not limited to, , stroke, AR, arrhythmia, PNA, ЕЛЕНА/F, bleeding, and infection), discussed the expected in-hospital postprocedural course, and reviewed the expected outpatient recovery. All questions were answered to the best of my abilities.
The patient was agreeable to proceed. Informed consent has been obtained.
I anticipate LANGE to LAD, greater saphenous vein grafts to RI, OM1, RPDA, and possibly RPLB. An encompass maze and exclusion of his left atrial appendage wall to be performed.
REVIEW OF STUDIES:
Echocardiography 04/29/2024: Normal left ventricular systolic function and size with LVEF 50 to 55%, normal RV, trileaflet, calcified aortic valve without stenosis or regurgitation, posterior MAC with no significant mitral regurgitation, trace
tricuspid regurgitation (PASP 30 to 35 mmHg), and structurally normal pulmonary valve.
EKG 04/29/2024: Electronic atrial pacemaker has replaced sinus rhythm. Patient is atrially paced at 70 bpm, SD 194, QRS 88, QTc 436
Cardiac catheterization 04/28/2024: LM: 50% distal, LAD: Aneurysmal proximal LAD with diffuse moderate proximal disease, 40 to 50% mid disease, RI: Smooth 40% proximal stenosis, LCx: 50% mid stenosis, RCA: Eccentric 90% stenosis in distal vessel
beyond acute marginal, PDA with long 60% ostial stenosis (apical PDA fills via LAD collaterals)
Carotid ultrasound 04/28/2024: Negative for flow-limiting carotid stenosis with small amount of mixed calcified and noncalcified plaque at the carotid bulbs. Antegrade flow in bilateral vertebral arteries
CT chest 04/28/2024: Mild calcifications of the thoracic aorta without any thoracic aortic aneurysmal dilatation there is no significant calcifications of the ascending aorta. There is mild calcification of the aortic valve. Coronary calcifications
are present. There is minimal dependent atelectasis in the posterior lungs. There is fatty infiltration of the liver.
Labs 05/02/2024: WBC 7.2, hemoglobin 12.1, hematocrit 36.0, platelets 309, BUN/creatinine 19/0.7, glucose 143 (hemoglobin A1c 6.7)
Thank you for the opportunity to participate in the care of this kind gentleman.
Please call with any questions or concerns.
Nolan Sanchez MD
[phone]
[2024-05-02 07:59] LABS: Glucose - Point of Care 177 mg/dl (70-99)
[2024-05-02] MEDS: TIKOSYN 250 MCG PO ×2 (08:02→21:08)
[2024-05-02] MEDS: ASPIR LOW (ENTERIC COATED) 81 MG PO (08:02)
[2024-05-02] MEDS: PROZAC 20 MG PO (08:02)
[2024-05-02] MEDS: PRANDIN 1 MG PO ×3 (08:02→16:39)
[2024-05-02] MEDS: NOVOLOG FLEXPEN-MODERATE RESISTANCE 1 UNITS SC ×3 (08:02→16:39)
[2024-05-02] MEDS: PEPCID 20 MG PO ×2 (08:02→21:08)
--- NOTE | 2024-05-02 08:13 | PTCARENOTE ---
Assumed care of pt from shift leader RN. Pt AAOx3. NSR/A-paced on building manager. VSS. Pt continues to be therapeutic on heparin gtt @ 1900 units/hr. R radial site rotary driller helper & WDL. Assessment documented. Pt resting in bed, call bautista in reach. Plan for NPO
at OK for CABG/MAZE/JULIANNE clip by Dr. Sanchez tomorrow.
--- NOTE | 2024-05-02 08:14 | W.PN.CARDCBS ---
Today's Communication / Plan
-
Continue current medical therapy as we anticipate coronary artery bypass grafting surgery coupled with left atrial maze and left atrial appendage exclusion plan for tomorrow.
Impression / Plan
-
PCP: Dr. Jacques Sandra
Cardiology: Dr. Philip Partida ([facility] Cardiology)
Impression:
Abnormal outpatient stress test 04/14/2024
MV CAD by cath 04/28/24
Hazy distal LM stenosis, LAD with moderate nonobstructive CAD and an area of proximal aneurysmal disease, ramus with smooth 40% proximal stenosis that appears to be a reasonable distal target, OM�1 with proximal 70% disease and normal distal flow,
distal OM�2 with mid 50% stenosis, RCA is a large-caliber with 90% eccentric stenosis in the distal vessel by cath 04/28/2024
HTN
DM 2
Paroxysmal Afib
s/p PVI 28mm cryoballoon 03/2017
Paroxysmal typical atrial flutter
PPM, Biotronik 10/2016
Device check ATC office showed primarily SR, not pacer dependent, battery longevity listed at 55% 04/20/2024
Hyperlipidemia
Ongoing tobacco abuse
Smoked 1 PPD since age 13
Presumed obstructive sleep apnea
GERD
Osteoarthritis
Olguin's palsy
Lexiscan stress test 04/14/2024: Modified Prem protocol and only reached 80% MPHR with 3.4 METS of activity, chest pain with stress, predominantly reversible, moderate intensity defect in the basal to apical inferior segments suggesting RCA ischemia
Echo 03/29/24: Normal biventricular systolic function, unable to estimate RVSP, no /AR
Echo 04/29/2024: EF 50-55%, aortic sclerosis, trace TR, estimated PAP 30-35mmHg, dilated aortic root, sinus of Valsalva measures 3.9cm
Plan:
Acute coronary syndrome with NSTEMI and peak troponin of 0.683
He remains pain-free in SR (Atrial paced) and with stable blood pressure
Echocardiogram with preserved LVEF and no significant valvular disease
He is awaiting coronary artery bypass grafting surgery planned for Friday after Xarelto washout
Maintain IV heparin which will be held on-call to the OR for Friday
Known history of paroxysmal atrial fibrillation with prior PVI in 2018 and has been treated as an outpatient with ongoing antiarrhythmic drug therapy, dofetilide 250 mcg twice daily as well as Cardizem CD 360 mg daily
Agree with CT surgery plan for adding maze and left atrial appendage exclusion to coronary artery bypass grafting surgery on Friday
Dyslipidemia
LDL 69. Continues on fenofibrate. h/o myalgia w/ all statin medications. On Repatha as OP, would continue.
HPI: The patient is a 68-year-old man with a past medical history significant for hypertension, zab-ukmkfbs-ckwlkpexu diabetes, paroxysmal atrial fibrillation on Xarelto, status post pacemaker placement for tachybradycardia syndrome, obesity, and
ongoing smoking who presents for cardiac catheterization after an abnormal stress test. Xarelto was held for the procedure.
Progress Note - Manager Film
Subjective
Date of Service: May 02, 2024
He remains pain-free, no shortness of breath palpitations or dizziness.
Objective
Labs:
05/02/24 04:17
05/02/24 04:17
Labs
Hgb 12.1 g/dL (13.0-18.0) L 05/02/24 04:17
Hct 36.0 % (39.0-52.0) L 05/02/24 04:17
Plt Count 309 10^3/uL (130-400) 05/02/24 04:17
PT 14.1 Sec (11.4-14.6) 04/29/24 03:41
INR 1.04 04/29/24 03:41
APTT 105.2 Sec (23.4-35.0) H 05/02/24 04:17
Sodium 136 mmol/L (135-145) 05/02/24 04:17
Potassium 4.2 mmol/L (3.5-5.1) 05/02/24 04:17
BUN 19 mg/dl (9-20) 05/02/24 04:17
Creatinine 0.7 mg/dL (0.7-1.3) 05/02/24 04:17
Glucose 143 mg/dl (70-99) H 05/02/24 04:17
Vital Signs and I&O:
Vital Signs
Temp Pulse Resp BP Pulse Ox
97.6 F 67 20 116/67 95
05/02/24 06:49 05/02/24 04:10 05/02/24 06:49 05/02/24 04:10 05/02/24 06:49
Vital Signs
Temp Pulse Resp BP Pulse Ox
97.6 F 67 20 116/67 95
05/02/24 06:49 05/02/24 04:10 05/02/24 06:49 05/02/24 04:10 05/02/24 06:49
Intake & Output
04/30/24 05/01/24 05/02/24 05/03/24
06:59 06:59 06:59 06:59
Intake Total 1188 / 1188 1160 / 1160 480 / 480
Balance 1188 / 1188 1160 / 1160 480 / 480
Physical Exam
Physical Exam
Well-appearing, no acute distress
Regular rate and rhythm with normal S1 and S2, no S3 no S4. There is a grade 1/6 apical holosystolic murmur and no rubs. PMI is normally placed.
Lungs are clear to auscultation bilaterally without wheezes rales or rhonchi.
Abdomen soft nontender nondistended with normoactive bowel sounds
Extremities show trace pretibial edema bilaterally no clubbing or cyanosis.
Neurologic exam is grossly nonfocal.
[2024-05-02 11:59] VITALS: BP 119/72
[2024-05-02 12:06] LABS: Glucose - Point of Care 194 mg/dl (70-99)
[2024-05-02 14:59] VITALS: BP 130/58
[2024-05-02 16:38] LABS: Glucose - Point of Care 174 mg/dl (70-99)
[2024-05-02] MEDS: PROTONIX 40 MG PO (17:02)
[2024-05-02 19:36] VITALS: BP 120/65
--- NOTE | 2024-05-02 19:45 | PTCARENOTE ---
Assumed care of pt from prev nsg shift; Pt AAOx3 w/no c/o CP or SOB. Pt w/VS stable w/HR in the 70's & BP 120/65 tonight. Pt is SR w/A-pacing on telemetry monitoring. Pt's IV Heparin drip infusing as ordered through patent R FA IV line. Discussed
plan of care for surgery prep tonight. Answered pt's questions & provided emotional support. Pt w/call bautista within reach & plan of care ongoing.
[2024-05-02 20:59] LABS: Glucose - Point of Care 219 mg/dl (70-99)
[2024-05-02] MEDS: TRICOR 145 MG PO (21:55)
[2024-05-02] MEDS: CARDIZEM CD 360 MG PO (21:55)
[2024-05-02] MEDS: XALATAN OPHTHALMIC SOLUTION 1 DROP BOTH EYES (21:55)
[2024-05-02] MEDS: ACTOS 30 MG PO (21:55)
[2024-05-02] MEDS: SINGULAIR 10 MG PO (21:55)
[2024-05-02 22:34] VITALS: BP 135/86
[2024-05-02] MEDS: ATIVAN 1 MG PO (22:37)
[2024-05-03] VITALS (10 sets, daily range): BP systolic 83–127; BP diastolic 51–112; BMI 37.4
[2024-05-03] MEDS: HEPARIN 25000 UNITS/250 ML IV (00:39)
[2024-05-03] MEDS: MAGNESIUM OXIDE 500 MG PO (05:37)
[2024-05-03] MEDS: PROTONIX 40 MG PO (05:37)
[2024-05-03] MEDS: BACTROBAN 2% OINTMENT 1 APPLIC NASAL ×2 (05:37→22:04)
[2024-05-03] MEDS: LOPRESSOR 25 MG PO (05:37)
[2024-05-03 05:39] LABS: APTT 118.3 Sec (23.4-35.0)
[2024-05-03 06:07] LABS: Blood Urea Nitrogen 19 mg/dl (9-20); Calcium 9.6 mg/dl (8.4-10.2); Carbon Dioxide 23 mmol/L (22-30); Chloride 103 mmol/L (98-107); Estimated Creatinine Clearance 111 ml/min; Glucose 132 mg/dl (70-99); Potassium 4.1 mmol/L (3.5-5.1); Sodium 135 mmol/L (135-145); eGFR > 60.00
[2024-05-03 07:32] LABS: ACT+ - POC 115 Seconds (82-134)
[2024-05-03 08:26] LABS: Urine Albumin Negative (Neg - Trace); Urine Bilirubin Negative (Negative); Urine Character Clear (Clear); Urine Color Yellow; Urine Glucose Negative (Negative); Urine Ketone Negative (Negative); Urine Leukocyte Negative (Negative); Urine Nitrite Negative (Negative); Urine Occult Blood Negative (Negative); Urine Specific Gravity 1.015 (<1.030); Urine Urobilinogen Negative (Neg - 1+)
[2024-05-03 09:48] LABS: ACT+ - POC 402 Seconds (82-134)
[2024-05-03] MEDS: PEPCID PO (09:52)
[2024-05-03] MEDS: PROZAC PO (09:52)
[2024-05-03] MEDS: TIKOSYN PO ×2 (09:52→20:50)
[2024-05-03] MEDS: NOVOLOG FLEXPEN-MODERATE RESISTANCE SC ×2 (09:52→13:48)
[2024-05-03] MEDS: ASPIR LOW (ENTERIC COATED) PO (09:52)
[2024-05-03 09:58] LABS: ACT+ - POC 406 Seconds (82-134)
[2024-05-03 10:29] LABS: ACT+ - POC 462 Seconds (82-134)
[2024-05-03 10:33] LABS: B.E. - POC -1.7 mmol/L; Glucose - POC 152 mg/dl (70-99); HCO3 - POC 24 mmol/L (21-28); Hematocrit - POC 33 % PCV (42-52); Hemodilution- POC No; Hemoglobin Calculated - POC 11.4; Ionized Calcium - POC 1.26 mmol/L (1.15-1.33); Lactate - POC 1.82 mmol/L (0.36-0.75); O2 Saturation %Calculated-POC 99.5 % (94-98); PCO2 - POC 43 mmHg (35-48); PO2 - POC 179 mmHg (83-108); Potassium - POC 3.6 mmol/L (3.5-5.1); Sodium - POC 139 mmol/L (136-145); Specimen Type - POC Arterial; pH - POC 7.36 (7.35-7.45)
[2024-05-03 10:44] LABS: ACT+ - POC 586 Seconds (82-134)
[2024-05-03 11:04] LABS: B.E. - POC 0.4 mmol/L; Glucose - POC 207 mg/dl (70-99); HCO3 - POC 26 mmol/L (21-28); Hematocrit - POC 32 % PCV (42-52); Hemodilution- POC Yes; Hemoglobin Calculated - POC 10.9; PCO2 - POC 42 mmHg (35-48); PO2 - POC 415 mmHg (83-108); Sodium - POC 137 mmol/L (136-145); Specimen Type - POC Arterial; pH - POC 7.39 (7.35-7.45)
[2024-05-03 11:23] LABS: ACT+ - POC 720 Seconds (82-134)
[2024-05-03 11:30] LABS: B.E. - POC 0.2 mmol/L; Glucose - POC 168 mg/dl (70-99); HCO3 - POC 25 mmol/L (21-28); Hematocrit - POC 33 % PCV (42-52); Hemodilution- POC Yes; Hemoglobin Calculated - POC 11.2; Ionized Calcium - POC 1.15 mmol/L (1.15-1.33); O2 Saturation %Calculated-POC 99.9 % (94-98); PCO2 - POC 43 mmHg (35-48); PO2 - POC 307 mmHg (83-108); Potassium - POC 4.2 mmol/L (3.5-5.1); Sodium - POC 138 mmol/L (136-145); Specimen Type - POC Arterial; pH - POC 7.38 (7.35-7.45)
[2024-05-03 11:59] LABS: ACT+ - POC 594 Seconds (82-134)
[2024-05-03 11:59] LABS: B.E. - POC -1.5 mmol/L; Glucose - POC 160 mg/dl (70-99); HCO3 - POC 24 mmol/L (21-28); Hematocrit - POC 31 % PCV (42-52); Hemodilution- POC Yes; Hemoglobin Calculated - POC 10.4; Ionized Calcium - POC 1.16 mmol/L (1.15-1.33); Lactate - POC 3.44 mmol/L (0.36-0.75); O2 Saturation %Calculated-POC 99.9 % (94-98); PCO2 - POC 41 mmHg (35-48); PO2 - POC 317 mmHg (83-108); Potassium - POC 4.1 mmol/L (3.5-5.1); Sodium - POC 138 mmol/L (136-145); Specimen Type - POC Arterial; pH - POC 7.37 (7.35-7.45)
[2024-05-03 12:37] LABS: ACT+ - POC 580 Seconds (82-134)
[2024-05-03 12:55] LABS: Glucose - POC 163 mg/dl (70-99); HCO3 - POC 24 mmol/L (21-28); Hematocrit - POC 28 % PCV (42-52); Hemodilution- POC Yes; Hemoglobin Calculated - POC 9.5; Ionized Calcium - POC 1.13 mmol/L (1.15-1.33); Lactate - POC 3.81 mmol/L (0.36-0.75); O2 Saturation %Calculated-POC 99.9 % (94-98); PCO2 - POC 40 mmHg (35-48); PO2 - POC 334 mmHg (83-108); Potassium - POC 4.6 mmol/L (3.5-5.1); Sodium - POC 138 mmol/L (136-145); Specimen Type - POC Arterial; pH - POC 7.39 (7.35-7.45)
[2024-05-03 13:24] LABS: B.E. - POC -2.8 mmol/L; Glucose - POC 156 mg/dl (70-99); HCO3 - POC 22 mmol/L (21-28); Hematocrit - POC 28 % PCV (42-52); Hemodilution- POC Yes; Hemoglobin Calculated - POC 9.5; Ionized Calcium - POC 1.13 mmol/L (1.15-1.33); O2 Saturation %Calculated-POC 99.9 % (94-98); PCO2 - POC 37 mmHg (35-48); PO2 - POC 295 mmHg (83-108); Potassium - POC 4.3 mmol/L (3.5-5.1); Sodium - POC 142 mmol/L (136-145); Specimen Type - POC Arterial; pH - POC 7.39 (7.35-7.45)
[2024-05-03 13:54] LABS: ACT+ - POC 561 Seconds (82-134)
[2024-05-03 14:05] LABS: ACT+ - POC 112 Seconds (82-134)
[2024-05-03 14:14] LABS: B.E. - POC -2.2 mmol/L; Glucose - POC 177 mg/dl (70-99); HCO3 - POC 23 mmol/L (21-28); Hematocrit - POC 30 % PCV (42-52); Hemodilution- POC Yes; Hemoglobin Calculated - POC 10.3; Ionized Calcium - POC 1.28 mmol/L (1.15-1.33); O2 Saturation %Calculated-POC 99.6 % (94-98); PCO2 - POC 40 mmHg (35-48); PO2 - POC 182 mmHg (83-108); POC Comment POST; Potassium - POC 3.8 mmol/L (3.5-5.1); Sodium - POC 140 mmol/L (136-145); Specimen Type - POC Arterial; pH - POC 7.36 (7.35-7.45)
--- NOTE | 2024-05-03 14:48 | W.IMMPOSTOP ---
Addendum entered and electronically signed by Nolan Sanchez MD 05/03/24 15:57:
Dictated
Original Note:
Surgical Immed Post Op Note
-
CARDIAC SURGERY OPERATIVE NOTE:
Preoperative Dx:
MVCAD including LM disease
PAF
Postoperative Dx:
Same
Heparin resistance
Procedures:
1) Median sternotomy
2) Takedown of AMANDA (narrow pedicle)
3) Endoscopic evaluation of RLE GSV
4) Endoscopic harvest/prep of LLE GSV
5) Encompass MAZE procedure
6) ELAA w/ 50mm AtriClip
7) CABG x 3 (AMANDA to LAD, GSV to RI, GSV to RPDA)
Surgeon:
Nolan Sanchez M.D.
Assistants:
Michela Chau P.A.-C.; endoscopic eval of RLE, endoscopic harvest/prep of LLE GSV, visitor use assistant throughout
Carolina Sunshine P.A.-C.; [id number] closure of sternotomy
Anesthesia:
Serg Matias M.D.
Perfusion:
Rell KauffmanCOrlandoPOrlando; XC: 127min, CPB: 187min
Findings:
Sternal tissues were very osteoporotic and friable
AMANDA was a healthy appearing conduit w/ thin connell, but very brisk blood flow; ELD 2.50mm
RLE GSV was too small to be utilized as conduit
LLE GSV was healthy appearing conduit w/ thin connell and slightly small caliber; ELD 2.50-3.00mm
LAD was obscured by epicardial adipose tissue, but located at its standard anatomic location; scattered calcifications; normal connell at midpoint anastomosis; ELD 3.00mm
RI was intramyocardial under approximately 2mm of myocardium; thin connell; ELD 3.25mm
OM1 was a diminutive vessel not amenable to bypass
RPDA appeared initially to be a fairly healthy and reasonably sized target. Arteriotomy in proximal 1/3 w/ thin connell anteriorly and laterally w/ calcified plaque on inferior aspect opposite anastomosis; vessel w/ reasonable ELD of 1.75mm.
Upon completion of anastomosis; significant, unexpected bleeding from left lateral aspect and heel of anastomosis. Anastomotic suture tightened and additional repair sutures x 2 placed without significant improvement. Anastomosis taken down;
posterior calcific plaque had fractured over length of arteriotomy & extending past heel of anastomosis. Arteriotomy extended. Plaque fracture tacked down w/ 7-0 prolene. Attempt made to repeat anastomosis at this location. Remaining coronary
wall profoundly friable w/ inability to hold suture. Anastomosis taken down again. There was a more complex fracture of the plaque w/ disruption of the surrounding adventitia that was too profound to allow for reconstruction. Vessel ligated
proximally & distally; arteriotomy oversewn with interrupted 7-0 prolene sutures. RPDA opened approximately 1.5cm distally. Thin connell at this location w/ smaller ELD of 1.35mm. Anastomosis performed over 1.0mm shunt. Reasonable flow consistent
w/ size of the vessel at this location.
PPLB cleared over a large portion of its course. Surgically accessable portions of this vessel were diminutive and not amendable to bypass
GOOD flow in all grafts on intraoperative transit-time U/S flow probe assessment
JULIANNE was cleared of thrombus on preop DERIK assessment; bilobed windsock morphology; wide base (50mm AtriClip)
Post-DERIK: LVEF 50-55%, mild TR, mild MR, JULIANNE no longer visible
Implants:
AtriClip 50mm; LOT [id number]
CT x 4 (B/L pleural, inferior mediastinal, superior mediastinal)
Sternal wires x 7
Sternal X-plate w/ 4 - 14mm and 4 - 16mm screws
Sternal Square-plate w/ 4 - 12mm screws
Complications:
See findings above
Transfusions:
None
Condition:
89 A-V-paced w/ PPM; 103/65, CVP: 22; 98%
GTTS: levophed 4, precedex 0.5, insulin 1
Stable/guarded to CVICU
[2024-05-03] MEDS: NOVOLOG FLEXPEN SC ×2 (15:07→16:29)
[2024-05-03] MEDS: NEURONTIN PO (15:07)
[2024-05-03] MEDS: TYLENOL PO (15:07)
[2024-05-03 15:34] LABS: Glucose - Point of Care 219 mg/dl (70-99)
--- NOTE | 2024-05-03 15:36 | W.PN.UPDATE ---
Update Note
Progress Note Update
68-year-old male presented 04/28/2024 for left heart cath which reported triple-vessel coronary disease. Patient's last dose of Xarelto was 04/27/2024 and he was converted to IV heparin.
Required [place] scope for intubation and AT3 x 2 for heparin resistance
IVF: 1400
U.O.:� 800
Blood:� none
Wires:� none
Inotropes:� none
Pressors:� Levo @ 4
Sedatives:� Precedex @ 0.5
�
NEURO: sedated, pupils +2mm B/L
RESP: #8OT @24cm> 550/40%/14/5. Lungs clear B/L. 2 mediastinal (0cc on arrival) and R/L pleural (0cc on arrival) chest tubes to -20cm suction. Sanguineous drainage
CV: RRR +S1, S2, no S3, no�rub, no murmur. Dermabond to median sternotomy. RIJ w/[place]
ABD: obese. round, soft, no BS
EXT: no edema, +2/4 DP pulses B/L, no femoral bruit, LLE AMOL wrap intact; right radial A-line intact
: Lane with clear yellow urine
�
A/P: POD #0 s/p CABG x 3 (AMANDA to LAD, GSV to RI, GSV to RPDA), Encompass MAZE, ELAA #50mm AtriClip
DERIK: EF�60-65%
- wean and extubate
-wean Levophed
# CAD
- will require ASA/Plavix, beta taurus
- Allergy to statin>resume Repatha and fenofibrate
�
# acute surgical blood loss anemia-expected
- trend CBC
# SSS s/p Biotronik dual chamber PPM (2019)
- device interrogated post-procedure by Biotronik rep
# PAF
- resume Tikosyn
- resume Xarelto after chest drains removed
�
# T2DM (A1C 6.7)
- insulin infusion x 48h
- resume home Metformin, Prandin, Actos when off insulin infusion
- diabetic, cholesterol lowering diet
- consider SGLT2i
�
# Depression
- resume Fluoxetine 20mg daily when tolerating solids
# Tobacco abuse-current
- advise on life long abstinence
# Class 2 Obesity (BMI 37)
- lifestyle modification with diet and increased activity
--- NOTE | 2024-05-03 15:40 | PTCARENOTE ---
Received pt from [facility] at 1520; pt intubated and sedation; Pupils 2mm equal and reactive; 100% AV paced on monitor (pt own PPM) and VSS; RIJ Cordis, SLIC, Right A-line and PIV x1 all lines leveled and zeroed; Levo, Insulin and Precedex infusing see
flow sheet for details; lungs diminished; ETT 8 25 @ lip; CT x4 to -20 wall suction, no air leak and no crepitus noted; hypoactive round obese bowel sounds; Lane catheter draining clear yellow urine; lower extremity pulses present by Doppler; no
edema noted; all surgical sites C/D/I; see nursing documentation for further details.
Levo 4 mcg/min
Precedex 0.5 mcg/kg/hr
Insulin 1 units/hr
[2024-05-03 15:44] LABS: Hematocrit 31.8 % (39.0-52.0); Platelet Count 266 10^3/uL (130-400)
--- NOTE | 2024-05-03 15:51 | CON.INTV ---
Consultation
Consultation Request
Date/Time Consultation Requested: 05/03/2024
Date/Time Consultation Performed: 05/03/2024
Requesting Provider: Dr. Sanchez
Performing Provider: Dr. Johnathan Lai
Reason for Consultation: Status post CABG
Medical History
-
History of Present Illness:
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
initially presented with abnormal stress test. Underwent left heart catheterization demonstrated multivessel coronary artery disease. Evaluated by CT surgery and he was deemed candidate for revascularization.
Underwent coronary artery bypass on 05/03/[address] Sanchez.
Currently on mechanical ventilation, sedated.
Chest tube in place without significant air leak
Past Medical History
Past Medical History: Other (See assessment and plan)
Social History
Tobacco: Smoker (1 pack/day)
Alcohol: None
Drug: None
Personal:
Employment: Employed
Family History
Family History: Unable to Obtain
Allergies / Home Medications
Allergies
Allergy/AdvReac Type Severity Reaction Status Date / Time
Ujmczng-VUP-CfD Reductase Allergy myalgias Verified 04/28/24 07:06
Inhibitor
fish Allergy Nausea / Uncoded 04/28/24 07:04
Vomiting
Home Medications
�Medication �Instructions �Recorded �Confirmed �Last Taken �Type
desloratadine 5 mg tablet 5 mg PO DAILYPRN PRN allergies 04/07/17 04/28/24 2 Weeks Ago History
(Clarinex) ~04/14/24
diltiazem HCl 360 mg capsule,24 360 mg PO HS 04/07/17 04/28/24 04/26/24 21:00 History
hr,extended release
fenofibrate nanocrystallized 145 145 mg PO HS 04/07/17 04/28/24 04/26/24 22:00 History
mg tablet
lorazepam 1 mg tablet 1 mg PO BIDPRN PRN anxiety 04/07/17 04/28/24 2 Days Ago History
~04/26/24
rabeprazole 20 mg tablet,delayed 20 mg PO QPM 04/07/17 04/28/24 04/27/24 18:00 History
release (AcipHex)
metformin 1,000 mg tablet 1,000 mg PO BID ##0 04/08/17 04/28/24 04/26/24 21:00 Rx
dofetilide 250 mcg capsule 250 mcg PO BID 04/28/24 04/28/24 04/28/24 04:30 History
evolocumab 140 mg/mL subcutaneous 140 mg SC Q2W 04/28/24 04/28/24 04/24/24 13:00 History
pen injector (Repatha SureClick)
famotidine 20 mg tablet 20 mg PO BID 04/28/24 04/28/24 04/28/24 04:30 History
fluoxetine 20 mg tablet 20 mg PO DAILY 04/28/24 04/28/24 04/27/24 07:00 History
latanoprost 0.005 % eye drops 1 drp ophthalmic (eye) HS 04/28/24 04/28/24 04/26/24 21:00 History
montelukast 10 mg tablet 10 mg PO HS 04/28/24 04/28/24 04/26/24 22:00 History
pioglitazone 30 mg tablet 30 mg PO HS 04/28/24 04/28/24 04/26/24 22:00 History
repaglinide 1 mg tablet 1 mg PO TID 04/28/24 04/28/24 04/27/24 19:00 History
rivaroxaban 20 mg tablet (Xarelto) 20 mg PO DAILY 04/28/24 04/28/24 04/27/24 07:00 History
Review of Systems
-
Unable to Obtain full review of systems at this time due to: Acuity and Patient Intubation
Vitals / Labs / Diagnostic Testing
Vital Signs
Temp Pulse Resp BP Pulse Ox
96.8 F L 85 14 126/69 96
05/03/24 15:34 05/03/24 15:30 05/03/24 15:32 05/03/24 05:11 05/03/24 15:47
Laboratory Results
05/03/24 05/03/24
05:14 15:27
APTT 118.3 H
pH Cancelled
pCO2 Cancelled
pO2 Cancelled
HCO3 Cancelled
O2 Delivery Level Cancelled
Diagnostic Testing:
Physical Exam
-
HEENT: Normocephalic
Cardiovascular: S1/S2
Respiratory: Non-Labored Respirations and Other (Chest tube in place without air leak)
GI: Soft and Non Distended
Neurology: Other (Sedated. On mechanical ventilation.)
Skin: Warm
General: Comfortable
Assessment
-
Status post Coronary artery bypass 05/03/2024 Dr. Sanchez
Postoperative mechanical ventilation
Postoperative anemia
Conditions present prior admission:
History of paroxysmal atrial fibrillation status post PVI [address] due to tachybradycardia syndrome
Morbid obesity
Type 2 diabetes
Hyperlipidemia tobacco abuse 1 pack/day
GERD
Osteoarthritis
History of Olguin's palsy
Depression-recently lost his to pancreatic cancer.
Assessment and plan:
He is doing well postop-currently on mechanical ventilation and appears comfortable.
ABG reviewed: 7.3
Continue SIMV mode with no change
Spontaneous breathing trial per protocol once sedation wears off.
Anemia noted-no evidence of acute bleeding
Follow H&H serially
Hemodynamics -on low-dose Levophed. Acceptable hemodynamics
Follow urinary output and renal function
Chest tube with no excessive drainage-no air leak.
Chest x-ray reviewed: With no pneumothorax or fluid collections.
Remain nothing by mouth
Head of the bed elevation
Obstructive sleep apnea: On CPAP therapy after extubation at bedtime
Glycemic control per protocol
DVT prophylaxis when safe from the surgical perspective.
Critical care statement: A total of 31 minutes of critical care time was provided for this patient today. This includes management of unstable vital signs, evaluation of the patient at bedside, reviewing the patient's pertinent medical records
including ventilator settings, arterial blood gases, radiographs, microbiology, laboratory evaluations and discussion with primary team, critical care nursing, and respiratory therapy.
[2024-05-03 15:57] LABS: APTT 27.1 Sec (23.4-35.0); INR 1.26; PT 16.1 Sec (11.4-14.6)
[2024-05-03 16:06] LABS: Blood Urea Nitrogen 17 mg/dl (9-20); Estimated Creatinine Clearance 111 ml/min; Glucose 209 mg/dl (70-99); Magnesium 2.9 mg/dl (1.6-2.3)
[2024-05-03 16:08] LABS: B.E. -2.3 mmol/L; HCO3 23.7 mmol/L (21-28); Ionized Calcium 1.29 mMOL/L (1.15-1.33); O2 Saturation % 98.9 % (94-98); PCO2 45 mmHg (35-48); PO2 116 mmHg (83-108); Potassium 4.8 mMOL/L (3.5-5.1); Sodium 137 mMOL/L (136-145); pH 7.33 (7.35-7.45)
--- NOTE | 2024-05-03 16:19 | W.PN.CARDCBS ---
Addendum entered and electronically signed by Vincenzo Payne MD 05/03/24 18:33:
Patient still sedated, intubated but starting to awaken. Norepinephrine just increased to 4 mcg/min, patient still on insulin, Precedex now off
Meds: Reviewed
Sedated, comfortable, lungs are clear, chest incision intact, no rub, regular rate and rhythm, no edema, small leg incisions intact,
ECG: AV paced, ventricular paced complexes following
Labs reviewed
Impression:
CABG 05/03/2024, LANGE to LAD, SVG to ramus, SVG to PDA, maze with atrial clip
Hypertension
Diabetes
History of PAF/PVI 2017
Paroxysmal atrial flutter
Biotronik permanent pacemaker
Hypertension
Ongoing tobacco abuse
Likely obstructive sleep apnea
GERD
Plan:
Doing well immediately postop.
Appreciate efforts of CT surgery
Okay to resume dofetilide from my standpoint
We will continue to follow
Original Note:
Today's Communication / Plan
-
Continue post op care
Impression / Plan
-
PCP: Dr. Jacques Sandra
Cardiology: Dr. Philip Partida ([facility])
Impression:
Abnormal outpatient stress test 04/14/2024
MV CAD by cath 04/28/24
s/p CABG x3 (AMANDA to LAD, GSV to RI, GSV to RPDA), MAZE, ELAA #50 mm AtriClip 05/03/2024
HTN
DM 2
Paroxysmal Afib
s/p PVI 28mm cryoballoon 03/2017
Paroxysmal typical atrial flutter
PPM, Biotronik 10/2016
Device check ATC office showed primarily SR, not pacer dependent, battery longevity listed at 55% 04/20/2024
Hyperlipidemia
Ongoing tobacco abuse
Smoked 1 PPD since age 13
Presumed obstructive sleep apnea
GERD
Osteoarthritis
Olguin's palsy
Lexiscan stress test 04/14/2024: Modified Prem protocol and only reached 80% MPHR with 3.4 METS of activity, chest pain with stress, predominantly reversible, moderate intensity defect in the basal to apical inferior segments suggesting RCA ischemia
LHC 04/28/2024: Hazy distal LM stenosis, LAD with moderate nonobstructive CAD and an area of proximal aneurysmal disease, ramus with smooth 40% proximal stenosis that appears to be a reasonable distal target, OM�1 with proximal 70% disease and normal
distal flow, distal OM�2 with mid 50% stenosis, RCA is a large-caliber with 90% eccentric stenosis in the distal vessel
Echo 03/29/24: Normal biventricular systolic function, unable to estimate RVSP, no /AR
Echo 04/29/2024: EF 50-55%, aortic sclerosis, trace TR, estimated PAP 30-35mmHg, dilated aortic root, sinus of Valsalva measures 3.9cm
Plan:
-Patient came to for an elective LHC on 04/28/2024 after an abnormal outpatient stress test through ATC at [facility] on 04/14/2024. On cardiac cath patient was found to have MV CAD as outlined above.
-s/p CABG x3 (AMANDA to LAD, GSV to RI, GSV to RPDA) 05/03/2024.
-Seen immediately post op. Remains intubated, sedated.
-On Levo @3, precedex @0.5.
-Hgb stable at 11.0, continue to follow. Chest tubes in place.
-Post OP ECG stable, V paced.
-Echo 04/29 with preserved EF, no significant valvular disease as noted above.
-Carotid US with no significant stenosis.
-LDL 69. Continues on fenofibrate. h/o myalgia w/ all statin medications. On Repatha as OP, would continue.
-Known h/o paroxysmal afib w/ prior PVI in 2018. Continue dofetilide 250 mcg BID. No afib noted.
-Plan is to start aspirin, plavix per CT surgery, eventually resume Xarelto once safe post-op.
-Continue post op care
HPI: The patient is a 68-year-old man with a past medical history significant for hypertension, tvb-joohntt-vdwfrkxbe diabetes, paroxysmal atrial fibrillation on Xarelto, status post pacemaker placement for tachybradycardia syndrome, obesity, and
ongoing smoking who presents for cardiac catheterization after an abnormal stress test. Xarelto was held for the procedure.
Progress Note - Dental Service Chief
Subjective
Date of Service: May 03, 2024
Intubated, sedated.
Objective
Labs:
05/03/24 15:27
Labs
Hgb 11.0 g/dL (13.0-18.0) L 05/03/24 15:27
Hct 31.8 % (39.0-52.0) L 05/03/24 15:27
Plt Count 266 10^3/uL (130-400) 05/03/24 15:27
PT 16.1 Sec (11.4-14.6) H 05/03/24 15:27
INR 1.26 05/03/24 15:27
APTT 27.1 Sec (23.4-35.0) 05/03/24 15:27
Sodium 135 mmol/L (135-145) 05/03/24 05:14
Potassium 4.1 mmol/L (3.5-5.1) 05/03/24 05:14
BUN 17 mg/dl (9-20) 05/03/24 15:27
Creatinine 0.8 mg/dL (0.7-1.3) 05/03/24 15:27
Glucose 209 mg/dl (70-99) H 05/03/24 15:27
Vital Signs and I&O:
Vital Signs
Temp Pulse Resp BP Pulse Ox
96.7 F L 74 14 126/69 96
05/03/24 16:01 05/03/24 15:55 05/03/24 16:01 05/03/24 05:11 05/03/24 16:01
Vital Signs
Temp Pulse Resp BP Pulse Ox
96.7 F L 74 14 126/69 96
05/03/24 16:01 05/03/24 15:55 05/03/24 16:01 05/03/24 05:11 05/03/24 16:01
Intake & Output
05/01/24 05/02/24 05/03/24 05/04/24
06:59 06:59 06:59 06:59
Intake Total 1188 / 1188 1160 / 1160 2140 / 2140 106.0 / 106.0
Output Total 135 / 135
Balance 1188 / 1188 1160 / 1160 2140 / 2140 -29.0 / -29.0
Physical Exam
Physical Exam
GEN: No distress, intubated, sedated
HEENT: mmm
LUNGS: CTA, no wheezes/rales
CV: Reg, S1/S2, 1/6 syst murmur
EXT: No clubbing, cyanosis, or edema
SKIN: Warm, dry, no rash
[2024-05-03] MEDS: NSS 500 IV (16:29)
[2024-05-03] MEDS: ANCEF 10 IV ×2 (16:29)
[2024-05-03] MEDS: DILAUDID 0.5 MG IV (16:30)
--- NOTE | 2024-05-03 16:36 | CM ---
pt in OR today, cm to follow.
[2024-05-03 16:57] LABS: Glucose - Point of Care 186 mg/dl (70-99)
[2024-05-03 17:59] LABS: Glucose - Point of Care 147 mg/dl (70-99)
--- NOTE | 2024-05-03 18:24 | PTCARENOTE ---
Respiratory at bedside and pt placed on CPAP.
[2024-05-03 19:05] LABS: Glucose - Point of Care 138 mg/dl (70-99)
[2024-05-03 19:06] LABS: B.E. -0.8 mmol/L; HCO3 25.8 mmol/L (21-28); O2 Saturation % 98.7 % (94-98); PCO2 50 mmHg (35-48); PO2 117 mmHg (83-108); Potassium 4.8 mMOL/L (3.5-5.1); Sodium 139 mMOL/L (136-145); pH 7.32 (7.35-7.45)
[2024-05-03] MEDS: OFIRMEV 100 IV (19:47)
[2024-05-03 19:48] LABS: Hematocrit 31.5 % (39.0-52.0); Hemoglobin 10.7 g/dL (13.0-18.0); Platelet Count 270 10^3/uL (130-400)
--- NOTE | 2024-05-03 20:00 | PTCARENOTE ---
Patient received from RN @1900. Patient PERRLA and alert to voice. BP 93/57 HR 77 hearts sounds audible but distant. Permanent pacemaker AV pacing. Intubated ET tube size 8 and at 25cm. Patient on CPAP trial POX 97% with audible stridor in
anterior bilateral lung ochoa. Bases are diminished. L and R pleural chest tube and 2 mediastinal chest tubes set to 20 mmHg suction draining red fluid WNL. R and L pleural chest tube has little tidaling noted but no crepitus. Mediastinal chest
tubes have no tidaling or crepitus. Chest tube dressing dry and intact. Bowel sounds hypoactive. Lane draining clear yellow urine WNL. Radial and pedal pulses present. Sternal incision dressing dry and intact. Left groin well approximated,
dry, and open to air. Right left leg shireen wrap dressing dry and intact. Right leg medial knee incision approximated, dry, and open to air. Right forearm PIV patent and intact infusing insulin per glycemic protocol. RIJ cordis patent and intact
infusing 10mL KVO. RIJ slick infusing Levo and 10mL KVO. Right A-line zeroed and leveled.
[2024-05-03] MEDS: LR 250 ML IV (20:01)
[2024-05-03 20:11] LABS: Glucose - Point of Care 128 mg/dl (70-99)
--- NOTE | 2024-05-03 20:31 | PTCARENOTE ---
At approx 1850 patient showing signs of being alert. Following commands appropriately opens eyes, nods head, [facility] assisted living hand, wiggles toes. CPAP since 1811 ABG obtained. ABG results indicated resp acidosis. CT PA notified. Per CT PA maintain CPAP for
additional hour redraw ABG at that time. In addition CT PA advised administration of 250 LR bolus.
[2024-05-03] MEDS: SENOKOT-S PO (20:50)
[2024-05-03 21:16] LABS: B.E. -0.7 mmol/L; HCO3 24.2 mmol/L (21-28); Ionized Calcium 1.21 mMOL/L (1.15-1.33); O2 Saturation % 99.3 % (94-98); PCO2 40 mmHg (35-48); PO2 135 mmHg (83-108); Potassium 4.5 mMOL/L (3.5-5.1); pH 7.39 (7.35-7.45)
[2024-05-03] MEDS: DILAUDID 0.25 MG IV (21:39)
--- NOTE | 2024-05-03 21:46 | PTCARENOTE ---
Labs drawn and CT PA Ed notified. Ordered to extubate per CT PA Ed. Patient extubated without complication at 2132. Placed on 6L via NC saO2 at 97%. Patient fully alert able to answer all orientation questions correctly albeit drowsy. Call bautista
within reach.
[2024-05-03 22:01] LABS: Glucose - Point of Care 127 mg/dl (70-99)
[2024-05-03] MEDS: CALCIUM GLUCONATE 130 MG IV (22:03)
--- NOTE | 2024-05-03 22:08 | RESPNOTE ---
pt extubated at 2132 per MD order. pt suctioned down ETT and orally prior to extubation. tolerated well. pt able to vocalize, no stridor present. placed on 6L NC at this time
[2024-05-03] MEDS: LOW STRENGTH ASPIRIN 81 MG PO (22:37)
[2024-05-03] MEDS: ANCEF 5 IV (22:42)
[2024-05-03] MEDS: XALATAN OPHTHALMIC SOLUTION 1 DROP BOTH EYES (22:46)
[2024-05-03] MEDS: TRICOR 145 MG PO (23:51)
[2024-05-03] MEDS: NEURONTIN 100 MG PO (23:52)
[2024-05-03] MEDS: TYLENOL 1000 MG PO (23:52)
[2024-05-03] MEDS: SINGULAIR 10 MG PO (23:52)
[2024-05-03] MEDS: LIPITOR 40 MG PO (23:52)
[2024-05-04] VITALS (32 sets, daily range): BP systolic 86–125; BP diastolic 43–96; PULSE 86; O2SAT 81–93; BMI 37.3
--- NOTE | 2024-05-04 | PTCARENOTE ---
Patient reassessed. Patient lying in bed w/ call bautista in reach. VSS NSR w/ V-paced BP 105/66 HR 85 POX 95% 4L NC. Confusion noted when asking patient orientation questions about where he is. Levo tapered to 1. Tolerating PO meds.
[2024-05-04 00:15] LABS: Glucose - Point of Care 150 mg/dl (70-99)
[2024-05-04 00:56] LABS: Glucose - Point of Care 147 mg/dl (70-99)
[2024-05-04] MEDS: LR 250 ML IV (01:19)
[2024-05-04] MEDS: XOPENEX 1.25 MG INHALANT SOLUTION INH ×4 (01:35→22:48)
--- NOTE | 2024-05-04 02:00 | PTCARENOTE ---
Patient c/o wheezing sob. Notified CT PA received orders for prn xopenex contacted RT for administration. Levo tapered to off. Given additional 250 LR for hypovolemia. Only receiving KVO and insulin at this time.
[2024-05-04 02:14] LABS: Glucose - Point of Care 110 mg/dl (70-99)
[2024-05-04 02:59] LABS: Glucose - Point of Care 122 mg/dl (70-99)
[2024-05-04 03:22] LABS: Hematocrit 28.4 % (39.0-52.0); Hemoglobin 9.9 g/dL (13.0-18.0); Mean Corp Hgb Conc. 34.9 g/dL (33.0-37.0); Mean Corpuscular Hgb 32.1 pg (27.0-31.0); Mean Corpuscular Volume 92.2 fL (80.0-94.0); Mean Platelet Volume 10.5 fL (7.4-10.4); Platelet Count 255 10^3/uL (130-400); Red Blood Cell Count 3.08 10^6/uL (4.70-6.10); Red Cell Dist. Width 13.8 % (11.5-14.5); White Blood Cell Count 17.9 10^3/uL (4.8-10.8)
[2024-05-04 03:48] LABS: Blood Urea Nitrogen 22 mg/dl (9-20); Calcium 9.1 mg/dl (8.4-10.2); Carbon Dioxide 26 mmol/L (22-30); Chloride 106 mmol/L (98-107); Estimated Creatinine Clearance 111 ml/min; Glucose 111 mg/dl (70-99); Magnesium 2.1 mg/dl (1.6-2.3); Potassium 4.2 mmol/L (3.5-5.1); Sodium 138 mmol/L (135-145); eGFR > 60.00
--- NOTE | 2024-05-04 04:00 | W.PN.CT ---
Today's Communication / Plan
-
Plan:
-No major issues overnight. Hemodynamically and neurologically intact
-Successfully extubated last night @ 2132
-Weaned off Levophed gtt overnight, remains on insulin gtt per protocol. Will hold AM dose of BB given soft BP postop
-Will wean off insulin gtt tomorrow since pt is a diabetic, will consult diabetes education/management
-No swan, u/o since OR 875 mL
-Pt has Biotronik PPM, was interrogated in the OR, currently v-paced @ 85 bpm
-Monitor chest tube output: 2meds 160/205, R/L pleurals 150/225
-Cont. current meds (ASA, Plavix, Lopressor, Tikosyn, Repatha, Fenofibrate, Prozac; will likely resume Xarelto and D/C Plavix on POD#4)
-D/C A-line and SLIC @ 0430
-Will D/C arteaga @ 0600
-Telemetry phase tomorrow when off insulin gtt
-No temporary PW, pt has PPM
-Encourage use of IS
-Wean off O2 as tolerated
-Encourage smoking cessation
-OOB into chair/Ambulate
Assessment / Plan
-
Assessment:
-S/P Median sternotomy/ CABG x 3 (AMANDA to LAD, GSV to RI, GSV to RPDA)/Endoscopic harvest/prep of LLE GSV/ Endoscopic evaluation of RLE GSV/Encompass MAZE procedure/ELAA w/ 50mm AtriClip, by Dr. Sanchez, 05/03/24, pod#1
-Severe 3v CAD/50% distal LM
-Abnormal stress test
-LVEF 50-55%, improved to 60-65% postop per intraop DERIK
-PAF S/P LA mapping/ablation 04/07/17
-SSS S/P Biotronik PPM, 10/2016
-HTN
-HLD (statin intolerance, on Repatha and Fenofibrate)
-T2DM (hgb A1C 6.7)
-Class 2 obesity (BMI 37.3)
-Suspected MILAD
-Active tobacco use (1ppd since age 13)
-GERD.
-Osteoarthritis.
-Olguin's palsy
-Depression 2/2 to passing away from pancreatic cancer and granddaughter having leukemia
-Acute postop blood loss/Anemia (stable without transfusion)
-Acute postop atelectasis
-Acute postop hypovolemia with subsequent hypervolemia
Discussed patient care with: Cardiology, Nursing, Respiratory Therapy, Pharmacy and Care Team
Subjective
Procedure
S/P Median sternotomy/ CABG x 3 (AMANDA to LAD, GSV to RI, GSV to RPDA)/Endoscopic harvest/prep of LLE GSV/ Endoscopic evaluation of RLE GSV/Encompass MAZE procedure/ELAA w/ 50mm AtriClip, by Dr. Sanchez, 05/03/24
-
Date of Service: May 04, 2024
Pt c/o incisional pain, otherwise feels well
Objective Data
-
Lab Results
05/04/24 03:11
05/04/24 03:11
PT 16.1 Sec (11.4-14.6) H 05/03/24 15:27
INR 1.26 05/03/24 15:27
APTT 27.1 Sec (23.4-35.0) 05/03/24 15:27
Vital Signs
Vital Signs
Temp Pulse Resp BP Pulse Ox
98.5 F 87 23 104/63 94
05/04/24 02:58 05/04/24 03:00 05/04/24 03:00 05/04/24 03:00 05/04/24 03:00
CT Intake/Output/Weight
05/03/24 05/03/24 05/04/24
06:59 18:59 06:59
Intake Total 940 / 0 150.8 / 774.1 623.3 / 774.1
Output Total 450 / 1135 685 / 1135
Balance 940 / 0 -299.2 / -360.9 -61.7 / -360.9
SaO2: 94 (6L)
Physical Exam
-
General: Awake, Oriented and AOx3
Cardiovascular: Regular rate & rhythm, No Murmurs, No Rub and No Gallop
Respiratory: Wheeze (expiratory wheezing)
Sternum: Stable
Incision: Clean, Dry, Intact and Dressing Intact
Extremities: Other (+trace edema)
Data Reviewed
-
Lab Results: Results Reviewed
Medications: Active Meds Reviewed
Chest X-Ray: Report Reviewed and Image Reviewed
ECG: Report Reviewed and Image Reviewed
[2024-05-04 04:02] LABS: Glucose - Point of Care 119 mg/dl (70-99)
[2024-05-04 04:53] LABS: Glucose - Point of Care 113 mg/dl (70-99)
--- NOTE | 2024-05-04 04:57 | PTCARENOTE ---
Patient reassessed. BP 111/65 HR 88 POX 94% 6L NC. Labs drawn and reviewed. EKG obtained showing Atrial sensed v paced rhythm. CT PA Ed notified of labs and ordered slick and A-line to be removed. Lines removed @0423 without complication.
Patient washed with CHG cloths and chest tube dressing changed. Scant drainage noted on sternal dressing. Patient laying in bed w/ call bautista in reach.
[2024-05-04] MEDS: ROXICODONE 5 MG PO (06:18)
[2024-05-04] MEDS: ANCEF 5 IV ×2 (06:19→13:05)
[2024-05-04] MEDS: TYLENOL 1000 MG PO ×3 (06:19→22:18)
--- NOTE | 2024-05-04 06:29 | PTCARENOTE ---
Lane removed @0600. Due to void @1200.
[2024-05-04 07:08] LABS: Glucose - Point of Care 144 mg/dl (70-99)
[2024-05-04] MEDS: NOVOLOG FLEXPEN SC (08:00)
[2024-05-04] MEDS: TORADOL 15 MG IV ×2 (08:20→19:39)
[2024-05-04] MEDS: BACTROBAN 2% OINTMENT 1 APPLIC NASAL ×2 (08:22→19:55)
[2024-05-04] MEDS: MAGNESIUM OXIDE 500 MG PO ×2 (08:26→19:55)
[2024-05-04] MEDS: TIKOSYN 250 MCG PO ×2 (08:26→19:55)
[2024-05-04] MEDS: LOW STRENGTH ASPIRIN 81 MG PO (08:27)
[2024-05-04] MEDS: FEOSOL 325 MG PO (08:27)
[2024-05-04] MEDS: PROZAC 20 MG PO (08:27)
[2024-05-04] MEDS: PROTONIX 40 MG PO (08:27)
[2024-05-04] MEDS: LIDOCAINE 4% PATCH 1 PATCH TOPICAL (08:27)
[2024-05-04] MEDS: NEURONTIN 100 MG PO ×2 (08:27→22:19)
[2024-05-04] MEDS: PLAVIX 75 MG PO (08:27)
[2024-05-04] MEDS: VITAMIN C 500 MG PO (08:27)
[2024-05-04] MEDS: SENOKOT-S 1 TABLET PO ×2 (08:27→19:56)
[2024-05-04] MEDS: NOVOLIN R INSULIN INFUSION 100 IV (08:29)
--- NOTE | 2024-05-04 08:41 | PTCARENOTE ---
Received pt from maintenance supervisor 2nd shift RN; pt AAOX3 and resting comfortably in chair; NSR on monitor and VSS; + rub; RIJ Cordis and PIV x1 patent; Insulin infusing per Glycemic protocol see flow sheet for details; Lungs diminished; CTx4 to -20 wall suction
no air leak and no crepitus noted; hypoactive bowel sounds; Lane removed at 0600, pt DTV by 1200; palpable pulses throughout; trace generalized edema noted; all surgical sites C/D/I; pain management see MAR for details; see nursing documentation
for further details.
[2024-05-04 09:02] LABS: Glucose - Point of Care 142 mg/dl (70-99)
--- NOTE | 2024-05-04 09:19 | W.PN.CARDCBS ---
Addendum entered and electronically signed by Sergio Humphries MD 05/04/24 10:17:
I saw and examined the patient.
The Car Clerk Pullman's note was reviewed and I agree with the note.
Comment:
GEN: No distress, awake, Ox3
HEENT: supple, anicteric, mmm
LUNGS: scatt rhonchi
CV: Reg, S1/S2, 1/6 syst LSB, no rub
ABD: soft, BS+, NT/ND
EXT: No edema
NEURO: Gross non-focal
SKIN: No rash
Plan:
Remains in sinus rhythm status post CABG. Continue Tikosyn. Eventually resume full anticoagulation.
Continue metoprolol and aspirin for now. Continue Tricor.
Hg 9.9
Original Note:
Today's Communication / Plan
-
continue post op care
in SR on tikosyn
eventual resume OAC
Impression / Plan
-
PCP: Dr. Jacques Sandra
Cardiology: Dr. Philip Partida ([facility])
Impression:
Abnormal outpatient stress test 04/14/2024
MV CAD by cath 04/28/24
s/p CABG x3 (AMANDA to LAD, GSV to RI, GSV to RPDA), MAZE, ELAA #50 mm AtriClip 05/03/2024
HTN
DM 2
Paroxysmal Afib
s/p PVI 28mm cryoballoon 03/2017
Paroxysmal typical atrial flutter
PPM, Biotronik 10/2016
Device check ATC office showed primarily SR, not pacer dependent, battery longevity listed at 55% 04/20/2024
Hyperlipidemia
Ongoing tobacco abuse
Smoked 1 PPD since age 13
Presumed obstructive sleep apnea
GERD
Osteoarthritis
Olguin's palsy
Lexiscan stress test 04/14/2024: Modified Prem protocol and only reached 80% MPHR with 3.4 METS of activity, chest pain with stress, predominantly reversible, moderate intensity defect in the basal to apical inferior segments suggesting RCA ischemia
C 04/28/2024: Hazy distal LM stenosis, LAD with moderate nonobstructive CAD and an area of proximal aneurysmal disease, ramus with smooth 40% proximal stenosis that appears to be a reasonable distal target, OM�1 with proximal 70% disease and normal
distal flow, distal OM�2 with mid 50% stenosis, RCA is a large-caliber with 90% eccentric stenosis in the distal vessel
Echo 03/29/24: Normal biventricular systolic function, unable to estimate RVSP, no /AR
Echo 04/29/2024: EF 50-55%, aortic sclerosis, trace TR, estimated PAP 30-35mmHg, dilated aortic root, sinus of Valsalva measures 3.9cm
Plan:
-s/p CABG x3 (AMANDA to LAD, GSV to RI, GSV to RPDA), MAZE, JULIANNE clip 05/03/2024.
-off pressors
-reports feeling fatigued and with some back discomfort
-hgb 9.9. continue asa, plavix at present. eventual resume OP xarelto when ok per surgery
-Known h/o paroxysmal afib w/ prior PVI in 2018. QTc stable in SR by EKG 05/04. continue OP tikosyn. occasional pacing on review of tele overnight, has biotronik PPM
-Continue post op care
-LDL 69. Continues on fenofibrate. h/o myalgia w/ all statin medications. On Repatha as OP, would continue.
-d/w nursing
HPI: The patient is a 68-year-old man with a past medical history significant for hypertension, mkh-hsjruns-atglcbmmr diabetes, paroxysmal atrial fibrillation on Xarelto, status post pacemaker placement for tachybradycardia syndrome, obesity, and
ongoing smoking who presents for cardiac catheterization after an abnormal stress test. Xarelto was held for the procedure.
Progress Note - [employer] Assistant
Subjective
Date of Service: May 04, 2024
reports some back discomfort and feeling tired.
Objective
Labs:
05/04/24 03:11
05/04/24 03:11
Labs
Hgb 9.9 g/dL (13.0-18.0) L 05/04/24 03:11
Hct 28.4 % (39.0-52.0) L 05/04/24 03:11
Plt Count 255 10^3/uL (130-400) 05/04/24 03:11
PT 16.1 Sec (11.4-14.6) H 05/03/24 15:27
INR 1.26 05/03/24 15:27
APTT 27.1 Sec (23.4-35.0) 05/03/24 15:27
Sodium 138 mmol/L (135-145) 05/04/24 03:11
Potassium 4.2 mmol/L (3.5-5.1) 05/04/24 03:11
BUN 22 mg/dl (9-20) H 05/04/24 03:11
Creatinine 0.8 mg/dL (0.7-1.3) 05/04/24 03:11
Glucose 111 mg/dl (70-99) H 05/04/24 03:11
Vital Signs and I&O:
Vital Signs
Temp Pulse Resp BP Pulse Ox
97.6 F 93 18 95/56 94
05/04/24 07:11 05/04/24 09:00 05/04/24 09:02 05/04/24 09:00 05/04/24 09:02
Vital Signs
Temp Pulse Resp BP Pulse Ox
97.6 F 93 18 95/56 94
05/04/24 07:11 05/04/24 09:00 05/04/24 09:02 05/04/24 09:00 05/04/24 09:02
Intake & Output
05/02/24 05/03/24 05/04/24 05/05/24
07:59 07:59 07:59 07:59
Intake Total 1160 / 1160 2139 / 0 834.0 / 847.0
Output Total 1445 / 1490
Balance 1160 / 1160 2140 / 2140 -611.0 / -643.0 -49 / -49
Physical Exam
Physical Exam
GEN: No distress, awake, alert, oriented x3. sitting in chair. obese. on supp O2
HEENT: supple, anicteric, mmm, eomi
LUNGS: Decreased BS B/L, no wheezes
CV: Reg, S1/S2, no murmur
EXT: No cyanosis, clubbing. 1+ edema of B/L LE
SKIN: Warm, pink, dry. No rash. Sternotomy dressing c/d/i. CTs in place
[2024-05-04 09:59] LABS: Glucose - Point of Care 130 mg/dl (70-99)
[2024-05-04] MEDS: NOVOLOG FLEXPEN 4 UNITS SC ×2 (11:04→17:13)
[2024-05-04 11:05] LABS: Glucose - Point of Care 165 mg/dl (70-99)
[2024-05-04 12:20] LABS: Glucose - Point of Care 120 mg/dl (70-99)
--- NOTE | 2024-05-04 12:24 | PTCARENOTE ---
NSR on monitor and VSS; assessment unchanged and pt resting comfortably in chair.
[2024-05-04] MEDS: MUCINEX 600 MG PO ×2 (13:05→19:55)
[2024-05-04 13:16] LABS: Glucose - Point of Care 103 mg/dl (70-99)
[2024-05-04] MEDS: NSS IV (13:28)
--- NOTE | 2024-05-04 13:44 | W.PN.ANS.POP ---
Anesthesia Post Operative
- Anesthesia Post Op Note
Vital Signs Stable-See Nursing Note: Yes (discussed with nurse as pt was sleeping, no issues per bedside RN)
Airway Patent: Yes
Adequate Pain Control: Yes
Change in Mental Status: No
Current Postoperative Nausea & Vomiting: No
Anesthesia Complications: No
General Anesthetic Recall: No
Unplanned Admission: No
Post Op Hydration Adequate: Yes
[2024-05-04] MEDS: ALBUMIN 5% 250 IV (14:04)
--- NOTE | 2024-05-04 14:28 | W.PN.INTV ---
Today's Communication / Plan
Recommendations
Continue postoperative care
Follow chest tube output
Daily chest x-ray
Follow hemoglobin
Smoking cessation encouraged
Continue cardiac management
Sign off
Assessment
-
Status post Coronary artery bypass 05/03/2024 Dr. Sanchez
Postoperative mechanical ventilation
Postoperative anemia
Conditions present prior admission:
History of paroxysmal atrial fibrillation status post PVI [address] due to tachybradycardia syndrome
Morbid obesity
Type 2 diabetes
Hyperlipidemia tobacco abuse 1 pack/day
GERD
Osteoarthritis
History of Olguin's palsy
Depression-recently lost his to pancreatic cancer.
Assessment and plan:
Doing well
Extubated 05/03/2024
Encourage incentive spirometry
Increase activity as able per protocol
Analgesia-pain relatively controlled
Anemia noted-no evidence of acute bleeding
Follow H&H serially
Leukocytosis likely reactive. Patient afebrile
Hemodynamics -off vasoactive drugs.
Normal renal function
Lane in place with adequate urinary output
Chest tube with no excessive drainage-no air leak.
Chest x-ray reviewed 05/04/2024: With no pneumothorax or fluid collections.
Smoking cessation encouraged-1 pack/day per
Not bronchospastic on exam pulmonary function testing with restriction. No airflow obstruction
CT chest 04/28/2024: No evidence for significant emphysema or lung nodules. Reviewed.
Patient encouraged to follow-up with primary care for lung cancer screening on a yearly basis.
Continue Xopenex as needed
Advance diet per protocol
Head of the bed elevation
Obstructive sleep apnea: On CPAP therapy at bedtime
Glycemic control per protocol
DVT prophylaxis when safe from the surgical perspective.
No additional recommendation from the critical care perspective.
Sign off
Subjective Dataa
Subjective Data
Date of Service:
Date of Service: May 04, 2024
Chief Complaint: Nailhead Operator Follow Up (Status post coronary artery bypass)
Subjective:
No overnight events
Extubated
Report that pain is controlled.
Review of Systems
Cardiopulmonary: Dyspnea (None at rest), Sputum Production (n) and Wheezing (n)
GI: Abdominal Pain (n), Nausea (n) and Vomiting (n)
Objective Data
Data Reviewed
Vital Signs / I&O / Oxygen:
Vital Signs
Temp Pulse Resp BP Pulse Ox
98 F 84 16 125/61 98
05/04/24 11:01 05/04/24 14:18 05/04/24 14:18 05/04/24 14:00 05/04/24 14:18
Intake and Output
05/03/24 05/04/24 05/05/24
06:59 06:59 06:59
Intake Total 2140 / 2140 821.0 / 821.0 359.5 / 359.5
Output Total 1425 / 1425 205 / 205
Balance 2140 / 2140 -604.0 / -604.0 154.5 / 154.5
SaO2 [CPAP] 98
SaO2 [SIMV] 96
SaO2 [A/C] 96
SaO2 98
Nasal Cannula flow liters per 2
minute
Physical Exam
General: Comfortable
HEENT: Normocephalic
Cardiovascular: S1-S2, Regular Rhythm, Rub and Other (Sternotomy intact)
Respiratory: Non-Labored Respirations
GI: Soft and Non Distended
Neurology: Awake, Alert and No Motor Deficits
Skin: Warm
Labs/Micro/Reports
Lab Data
05/04/24 03:11
05/04/24 03:11
Laboratory Results
05/03/24 05/03/24 05/03/24
15:27 15:57 18:58
PT 16.1 H
INR 1.26
APTT 27.1
pH Cancelled 7.33 L 7.32 L
pCO2 Cancelled 45 50 H
pO2 Cancelled 116 H 117 H
HCO3 Cancelled 23.7 25.8
O2 Delivery Level Cancelled Not Reportable
05/03/24
21:08
PT
INR
APTT
pH 7.39
pCO2 40
pO2 135 H
HCO3 24.2
O2 Delivery Level
[2024-05-04 15:02] LABS: Glucose - Point of Care 94 mg/dl (70-99)
--- NOTE | 2024-05-04 16:25 | PTCARENOTE ---
Assessment unchanged; NSR on monitor and VSS; pt resting comfortably in chair.
--- NOTE | 2024-05-04 16:40 | CM ---
pt in OR today, cm to follow
[2024-05-04 17:13] LABS: Glucose - Point of Care 151 mg/dl (70-99)
[2024-05-04 19:07] LABS: Glucose - Point of Care 134 mg/dl (70-99)
[2024-05-04] MEDS: LOPRESSOR 12.5 MG PO (19:55)
--- NOTE | 2024-05-04 20:00 | PTCARENOTE ---
Assumed care of patient at 1900. Patient found oob in chair at time of assessment. Patient is AOx4, follows commands appropriately, moves all extremities. Lung sounds are diminished throughout, saO2 97% on 2L, patient has CTx4 with serosanguineous
drainage. Heart sounds are audible, there is a rub present on auscultation, patient is ST with occasional vpacing, patient has DDD PPM rate set at 75bpm. Palpable pulses and +1 edema in hands as well as trace generalized anasarca. Bowel sounds
present in all four quadrants patient is voiding dark rachel urine using urinal. There is a sternal incision with aquacell dressing scant amount of old drainage presetn, R groin puncture approx with surg adhesive STEPHY, RLE incision approx with surg
adhesive STEPHY, LLE incision approx with surg adhesive STEPHY. There is a R IJ cordis receiving KVO and insulin gtt per glycemic protocol. Given toradol for moderate pain. Assisted back to bed without incident assistx1. Call bautista within reach.
[2024-05-04 21:43] LABS: Glucose - Point of Care 179 mg/dl (70-99)
[2024-05-04] MEDS: SINGULAIR 10 MG PO (22:18)
[2024-05-04] MEDS: TRICOR 145 MG PO (22:19)
[2024-05-04] MEDS: XALATAN OPHTHALMIC SOLUTION 1 DROP BOTH EYES (23:40)
[2024-05-05] VITALS (19 sets, daily range): BP systolic 101–136; BP diastolic 44–81; PULSE 88; O2SAT 96–98; BMI 38.6
--- NOTE | 2024-05-05 | PTCARENOTE ---
Patient reassessed. VSS. Remains SR/vpaced on the monitor. Placed on CPAP HS.
[2024-05-05 00:18] LABS: Glucose - Point of Care 146 mg/dl (70-99)
[2024-05-05 01:41] LABS: Glucose - Point of Care 146 mg/dl (70-99)
[2024-05-05 02:44] LABS: Glucose - Point of Care 116 mg/dl (70-99)
[2024-05-05 03:37] LABS: Glucose - Point of Care 100 mg/dl (70-99)
[2024-05-05 03:52] LABS: Hematocrit 26.7 % (39.0-52.0); Hemoglobin 8.9 g/dL (13.0-18.0); Mean Corp Hgb Conc. 33.3 g/dL (33.0-37.0); Mean Corpuscular Hgb 31.2 pg (27.0-31.0); Mean Corpuscular Volume 93.7 fL (80.0-94.0); Mean Platelet Volume 10.9 fL (7.4-10.4); Platelet Count 223 10^3/uL (130-400); Red Blood Cell Count 2.85 10^6/uL (4.70-6.10); Red Cell Dist. Width 14.1 % (11.5-14.5); White Blood Cell Count 17.4 10^3/uL (4.8-10.8)
--- NOTE | 2024-05-05 04:00 | PTCARENOTE ---
Patient reassessed. VSS. No c/o pain. Provided hygiene care. Assisted OOB to chair without incident. Weaned to RA. Call bautista within reach.
[2024-05-05 04:19] LABS: Blood Urea Nitrogen 33 mg/dl (9-20); Calcium 8.8 mg/dl (8.4-10.2); Carbon Dioxide 27 mmol/L (22-30); Chloride 99 mmol/L (98-107); Estimated Creatinine Clearance 88 ml/min; Glucose 92 mg/dl (70-99); Magnesium 2.7 mg/dl (1.6-2.3); Potassium 3.9 mmol/L (3.5-5.1); Sodium 133 mmol/L (135-145); eGFR > 60.00
[2024-05-05 04:35] LABS: Glucose - Point of Care 109 mg/dl (70-99)
--- NOTE | 2024-05-05 04:56 | W.PN.CT ---
Today's Communication / Plan
-
Plan:
-No major issues overnight. Hemodynamically and neurologically intact
-Off all drips but insulin per protocol, will transition off today
-Pt has Biotronik PPM, was interrogated in the OR, currently v-paced @ 87 bpm
-Consider D/C of chest tubes: 2meds 85/190, R/L pleurals 90/225
-CXR this AM looks clear without ptx on my review, f/u official report
-Cont. current meds (ASA, Plavix, Lopressor-switched to Toprol XL, Tikosyn, Repatha, Fenofibrate, Prozac; will likely resume Xarelto and D/C Plavix on POD#4)
-Mg 2.7, mag oxide placed on hold
-Monitor hyponatremia, 133. Consider gentle diuresis. Fluid restriction
-Telemetry phase today when off insulin gtt
-No temporary PW, pt has PPM
-Encourage use of IS
-Wean off O2 as tolerated
-Encourage smoking cessation
-OOB into chair/Ambulate
-Home likely in 2 days
Assessment / Plan
-
Assessment:
-S/P Median sternotomy/ CABG x 3 (AMANDA to LAD, GSV to RI, GSV to RPDA)/Endoscopic harvest/prep of LLE GSV/ Endoscopic evaluation of RLE GSV/[facility] MAZE procedure/ELAA w/ 50mm AtriClip, by Dr. Sanchez, 05/03/24, pod#2
-Severe 3v CAD/50% distal LM
-Abnormal stress test
-LVEF 50-55%, improved to 60-65% postop per intraop DERIK
-PAF S/P LA mapping/ablation 04/07/17
-SSS S/P Biotronik PPM, 10/2016
-HTN
-HLD (statin intolerance, on Repatha and Fenofibrate)
-T2DM (hgb A1C 6.7)
-Class 2 obesity (BMI 37.3)
-Suspected MILAD
-Active tobacco use (1ppd since age 13)
-GERD.
-Osteoarthritis.
-Olguin's palsy
-Depression 2/2 to passing away from pancreatic cancer and granddaughter having leukemia
-Acute postop blood loss/Anemia (stable without transfusion)
-Acute postop atelectasis
-Acute postop hypovolemia with subsequent hypervolemia
-Acute postop hyponatremia, 133
-Acute postop hypokalemia
Discussed patient care with: Cardiology, Nursing, Respiratory Therapy, Pharmacy and Care Team
Subjective
Procedure
S/P Median sternotomy/ CABG x 3 (AMANDA to LAD, GSV to RI, GSV to RPDA)/Endoscopic harvest/prep of LLE GSV/ Endoscopic evaluation of RLE GSV/[facility] MAZE procedure/ELAA w/ 50mm AtriClip, by Dr. Sanchez, 05/03/24
-
Date of Service: May 05, 2024
Pt c/o incisional pain, otherwise feels well
Objective Data
-
Lab Results
05/05/24 03:25
05/05/24 03:25
PT 16.1 Sec (11.4-14.6) H 05/03/24 15:27
INR 1.26 05/03/24 15:27
APTT 27.1 Sec (23.4-35.0) 05/03/24 15:27
Vital Signs
Vital Signs
Temp Pulse Resp BP Pulse Ox
97.9 F 87 20 107/60 92
05/05/24 03:12 05/05/24 04:30 05/05/24 04:00 05/05/24 04:00 05/05/24 04:30
CT Intake/Output/Weight
05/04/24 05/04/24 05/05/24
06:59 18:59 06:59
Intake Total 670.2 / 821.0 397.0 / 533.4 136.4 / 533.4
Output Total 975 / 1425 440 / 695 255 / 695
Balance -304.8 / -604.0 -43.0 / -161.6 -118.6 / -161.6
SaO2: 94 (RA)
Physical Exam
-
General: Awake, Oriented and AOx3
Cardiovascular: Regular rate & rhythm, No Murmurs, No Rub and No Gallop
Respiratory: Decreased Breath Sounds (at bases, otherwise clear)
Sternum: Stable
Incision: Clean, Dry, Intact and Dressing Intact
Extremities: Other (+trace edema)
Data Reviewed
-
Lab Results: Results Reviewed
Medications: Active Meds Reviewed
Chest X-Ray: Report Reviewed and Image Reviewed
ECG: Report Reviewed and Image Reviewed
[2024-05-05 06:19] LABS: Glucose - Point of Care 103 mg/dl (70-99)
[2024-05-05] MEDS: TYLENOL 1000 MG PO ×3 (06:20→21:45)
[2024-05-05] MEDS: KCL 20 MEQ PO (06:21)
--- NOTE | 2024-05-05 08:00 | PTCARENOTE ---
Assumed care of patient from prev RN. resting in chair at time of assessment. VSS. AAOx3. SR with occasional V pacing. PPM. SR HR 90s. 95% RA. CTx4 with serosanguineous drainage. for d/c today. Palpable pulses and +1 edema in hands as well as trace
generalized anasarca. +bs. MSI with aquacell dressing. old drainage remains. Additional surgical sites stable. R IJ cordis w/ KVO and insulin gtt per glycemic protocol. Assistx1 oob. will continue to monitor.
[2024-05-05] MEDS: PLAVIX 75 MG PO (08:32)
[2024-05-05] MEDS: VITAMIN C 500 MG PO (08:32)
[2024-05-05] MEDS: PROZAC 20 MG PO (08:32)
[2024-05-05] MEDS: FEOSOL 325 MG PO (08:32)
[2024-05-05] MEDS: LASIX 40 MG IV ×2 (08:32→14:39)
[2024-05-05] MEDS: PROTONIX 40 MG PO (08:32)
[2024-05-05] MEDS: SENOKOT-S 1 TABLET PO ×2 (08:32→20:15)
[2024-05-05] MEDS: TIKOSYN 250 MCG PO ×2 (08:32→20:15)
[2024-05-05] MEDS: MUCINEX 600 MG PO ×2 (08:32→20:15)
[2024-05-05] MEDS: TOPROL XL 12.5 MG PO ×2 (08:32→20:15)
[2024-05-05] MEDS: LOW STRENGTH ASPIRIN 81 MG PO (08:32)
[2024-05-05] MEDS: BACTROBAN 2% OINTMENT 1 APPLIC NASAL ×2 (08:37→20:15)
[2024-05-05] MEDS: NOVOLOG FLEXPEN 4 UNITS SC ×2 (08:38→13:15)
[2024-05-05] MEDS: LIDOCAINE 4% PATCH TOPICAL (08:39)
--- NOTE | 2024-05-05 09:12 | W.PN.CARDCBS ---
Addendum entered and electronically signed by Refugio Lloyd DO 05/05/24 11:25:
I saw and examined the patient.
The Replacer's note was reviewed and I agree with the note.
Comment:
Cont post op care
Cont Tikosyn
Cont DAPT, eventual Xarelto once ok with CT surgery
CT out later today
Discussed with nursing.
Original Note:
Today's Communication / Plan
-
continue post op care
continue tikosyn
Impression / Plan
-
PCP: Dr. Jacques Sandra
Cardiology: Dr. Philip Partida ([facility] Card[facility])
Impression:
Abnormal outpatient stress test 04/14/2024
MV CAD by cath 04/28/24
s/p CABG x3 (AMANDA to LAD, GSV to RI, GSV to RPDA), MAZE, ELAA #50 mm AtriClip 05/03/2024
HTN
DM 2
Paroxysmal Afib
s/p PVI 28mm cryoballoon 03/2017
Paroxysmal typical atrial flutter
PPM, Biotronik 10/2016
Device check ATC office showed primarily SR, not pacer dependent, battery longevity listed at 55% 04/20/2024
Hyperlipidemia
Ongoing tobacco abuse
Smoked 1 PPD since age 13
Presumed obstructive sleep apnea
GERD
Osteoarthritis
Olguin's palsy
Lexiscan stress test 04/14/2024: Modified Prem protocol and only reached 80% MPHR with 3.4 METS of activity, chest pain with stress, predominantly reversible, moderate intensity defect in the basal to apical inferior segments suggesting RCA ischemia
LHC 04/28/2024: Hazy distal LM stenosis, LAD with moderate nonobstructive CAD and an area of proximal aneurysmal disease, ramus with smooth 40% proximal stenosis that appears to be a reasonable distal target, OM�1 with proximal 70% disease and normal
distal flow, distal OM�2 with mid 50% stenosis, RCA is a large-caliber with 90% eccentric stenosis in the distal vessel
Echo 03/29/24: Normal biventricular systolic function, unable to estimate RVSP, no /AR
Echo 04/29/2024: EF 50-55%, aortic sclerosis, trace TR, estimated PAP 30-35mmHg, dilated aortic root, sinus of Valsalva measures 3.9cm
Plan:
-s/p CABG x3 (AMANDA to LAD, GSV to RI, GSV to RPDA), MAZE, JULIANNE clip 05/03/2024.
-slowly progressing
-hgb 8.9. continue asa, plavix at present. eventual resume OP xarelto when ok per surgery
-Known h/o paroxysmal afib w/ prior PVI in 2018. QTc stable in SR by EKG 05/04. continue OP tikosyn. occasional pacing on review of tele overnight, has biotronik PPM
-Continue post op care, OOB/IS as able
-LDL 69. Continues on fenofibrate. h/o myalgia w/ all statin medications. On Repatha as OP, would continue.
-d/w nursing
HPI: The patient is a 68-year-old man with a past medical history significant for hypertension, jlb-viwfohg-eyyslbycz diabetes, paroxysmal atrial fibrillation on Xarelto, status post pacemaker placement for tachybradycardia syndrome, obesity, and
ongoing smoking who presents for cardiac catheterization after an abnormal stress test. Xarelto was held for the procedure.
Progress Note - [employer]os[employer] Operator
Subjective
Date of Service: May 05, 2024
Reports remains with some discomfort with taking a deep breath
Objective
Labs:
05/05/24 03:25
05/05/24 03:25
Labs
Hgb 8.9 g/dL (13.0-18.0) L 05/05/24 03:25
Hct 26.7 % (39.0-52.0) L 05/05/24 03:25
Plt Count 223 10^3/uL (130-400) 05/05/24 03:25
PT 16.1 Sec (11.4-14.6) H 05/03/24 15:27
INR 1.26 05/03/24 15:27
APTT 27.1 Sec (23.4-35.0) 05/03/24 15:27
Sodium 133 mmol/L (135-145) L 05/05/24 03:25
Potassium 3.9 mmol/L (3.5-5.1) 05/05/24 03:25
BUN 33 mg/dl (9-20) H 05/05/24 03:25
Creatinine 1.0 mg/dL (0.7-1.3) 05/05/24 03:25
Glucose 92 mg/dl (70-99) 05/05/24 03:25
Vital Signs and I&O:
Vital Signs
Temp Pulse Resp BP Pulse Ox
98.8 F 92 18 106/67 96
05/05/24 08:00 05/05/24 08:32 05/05/24 08:00 05/05/24 08:32 05/05/24 08:15
Vital Signs
Temp Pulse Resp BP Pulse Ox
98.8 F 92 18 106/67 96
05/05/24 08:00 05/05/24 08:32 05/05/24 08:00 05/05/24 08:32 05/05/24 08:15
Intake & Output
05/03/24 05/04/24 05/05/24 05/06/24
07:59 07:59 07:59 07:59
Intake Total 2139 834.0 / 847.0 548.4 / 562.4
Output Total 1445 1490 910 / 975
Balance 2139 -611.0 / -643.0 -361.6 / -412.6 -51 / -51
Physical Exam
Physical Exam
GEN: No distress, awake, alert, oriented x3. sitting in chair. obese. on supp O2
HEENT: supple, anicteric, mmm, eomi
LUNGS: Decreased BS B/L, no wheezes
CV: Reg, S1/S2, no murmur
EXT: No cyanosis, clubbing. 1+ edema of B/L LE
SKIN: Warm, pink, dry. No rash. Sternotomy dressing c/d/i. CTs in place
[2024-05-05] MEDS: PRANDIN 1 MG PO ×2 (11:55→17:13)
[2024-05-05] MEDS: TORADOL 15 MG IV (11:57)
[2024-05-05 13:11] LABS: Glucose - Point of Care 161 mg/dl (70-99)
[2024-05-05 13:11] LABS: Glucose - Point of Care 257 mg/dl (70-99)
[2024-05-05 13:13] LABS: Glucose - Point of Care 202 mg/dl (70-99)
[2024-05-05] MEDS: NSS 500 IV (13:16)
--- NOTE | 2024-05-05 14:31 | CM ---
CM following for DC planning needs.
Reviewed initial assessment. Pt. resides resides with his daughter and three grandchildren in a bi-level home. He has three steps to get to into the home thru the basement, eighteen steps from the deck and three steps to get in from the front. He
states prior to admission he was independent with ambulation and adls.
Antic. DC plan is for home w/ CT Transitional Care RN.
CM to follow.
--- NOTE | 2024-05-05 16:00 | PTCARENOTE ---
d/c insulin per orders. walked into bathroom. VSS. no additional changes in assessment. pleasant. doing great.
[2024-05-05] MEDS: GLUCOPHAGE 1000 MG PO (17:13)
[2024-05-05 18:12] LABS: Glucose - Point of Care 176 mg/dl (70-99)
[2024-05-05] MEDS: NOVOLOG FLEXPEN-MODERATE RESISTANCE 1 UNITS SC (18:12)
--- NOTE | 2024-05-05 20:30 | PTCARENOTE ---
Assumed care of patient from cristiano RN. Pt AAOx3. HELENA. SR on the tele monitor w/ occasional v-pacer spikes. Pt w/ PPM. HR 80-90s. BP stable. Weak DP pulses. Trace B/L hand edema and generalized throughout. Pt 96% on RA. Lung sounds diminished B/L.
Deep breathing and IS encouraged. Occasional productive cough. Abdomen round. +BS x4. Pt voiding in urinal. All surgical site stable. Right IJ cordis and PIVx1 C/D/I. CT dressing w/ Tegaderm placed by CTPA during the day intact. Pt denies pain at
this time. Pt instructed on plan for the night. See worklist for full nursing assessment and interventions. Call bautista within reach.
[2024-05-05 21:45] LABS: Glucose - Point of Care 157 mg/dl (70-99)
[2024-05-05] MEDS: TRICOR 145 MG PO (21:45)
[2024-05-05] MEDS: SINGULAIR 10 MG PO (21:45)
[2024-05-05] MEDS: XALATAN OPHTHALMIC SOLUTION 1 DROP BOTH EYES (21:46)
[2024-05-05] MEDS: NEURONTIN 100 MG PO (21:46)
[2024-05-05] MEDS: ACTOS 30 MG PO (21:46)
[2024-05-05 22:38] LABS: Estimated Creatinine Clearance 100 ml/min; Magnesium 2.2 mg/dl (1.6-2.3)
--- NOTE | 2024-05-05 23:00 | PTCARENOTE ---
report received from previous RN, walking rounds done. pt sleeping. VSS. SR on monitor, HR 80s. B/L radial and DP pulses palpable. B/L breath sounds present. POX 96% on RA. bowel sounds present. pt voids in urinal without difficulty. all surgical
site stable. RIJ cordis intact w KVO infusing. see worklist for full nursing assessment, VS, and interventions. call bautista within reach.
[2024-05-06] VITALS (11 sets, daily range): BP systolic 93–131; BP diastolic 49–93; PULSE 90; O2SAT 97–98; BMI 38.2
--- NOTE | 2024-05-06 05:30 | PTCARENOTE ---
no changes in assessment, VSS. SR w PVCs, HR 80s-90s. POX 97% on room air. all surgical sites stable. not able to flush RIJ cordis and no blood return--d/c'd per orders. pt voiding CYU. pt assisted OOB to chair. AM labs drawn and sent. weight
obtained. no complaints of pain at this time.
[2024-05-06 05:48] LABS: Hematocrit 27.6 % (39.0-52.0); Hemoglobin 9.3 g/dL (13.0-18.0); Mean Corp Hgb Conc. 33.7 g/dL (33.0-37.0); Mean Corpuscular Hgb 31.6 pg (27.0-31.0); Mean Corpuscular Volume 93.9 fL (80.0-94.0); Mean Platelet Volume 10.6 fL (7.4-10.4); Platelet Count 258 10^3/uL (130-400); Red Blood Cell Count 2.94 10^6/uL (4.70-6.10); Red Cell Dist. Width 14.2 % (11.5-14.5); White Blood Cell Count 14.3 10^3/uL (4.8-10.8)
--- NOTE | 2024-05-06 06:01 | W.PN.CT ---
Today's Communication / Plan
-
-pod #2
-no issues overnight
-nsr with PVCs overnight
-dcd Cordis (nonfunctional)
-am labs are pending
-has permanent pacer, Biotronik (interrogated in OR postop)
-current meds (ASA, Plavix, Toprol 12.5 bid, Tikisyn 250 bid, Tricor, Glucophage, Prandin, Actos, Protonix). Intolerant of statins. Pt was on Xarelto preop for paf
-monitor Qt on Tikosyn and Prozac
-consider diuresis
-encourage IS (1500 so far), OOB, ambulate
Assessment / Plan
-
Assessment:
-S/P Median sternotomy/ CABG x 3 (AMANDA to LAD, GSV to RI, GSV to RPDA)/Endoscopic harvest/prep of LLE GSV/ Endoscopic evaluation of RLE GSV/[facility] MAZE procedure/ELAA w/ 50mm AtriClip, by Dr. Sanchez, 05/03/24, pod#3
-Severe 3v CAD/50% distal LM
-Abnormal stress test
-LVEF 50-55%, improved to 60-65% postop per intraop DERIK
-PAF S/P LA mapping/ablation 04/07/17
-SSS S/P Biotronik PPM, 10/2016
-HTN
-HLD (statin intolerance, on Repatha and Fenofibrate)
-T2DM (hgb A1C 6.7)
-Class 2 obesity (BMI 37.3)
-Suspected MILAD
-Active tobacco use (1ppd since age 13)
-GERD.
-Osteoarthritis.
-Olguin's palsy
-Depression 2/2 to passing away from pancreatic cancer and granddaughter having leukemia
-Acute postop blood loss/Anemia (stable without transfusion)
-Acute postop atelectasis
-Acute postop hypovolemia with subsequent hypervolemia
-Acute postop hyponatremia, 133
-Acute postop hypokalemia
Discussed patient care with: Nursing and Care Team
Subjective
Procedure
S/P Median sternotomy/ CABG x 3 (AMANDA to LAD, GSV to RI, GSV to RPDA)/Endoscopic harvest/prep of LLE GSV/ Endoscopic evaluation of RLE GSV/[facility] MAZE procedure/ELAA w/ 50mm AtriClip, by Dr. Sanchez, 05/03/24
-
Date of Service: May 06, 2024
Objective Data
-
PT 16.1 Sec (11.4-14.6) H 05/03/24 15:27
INR 1.26 05/03/24 15:27
APTT 27.1 Sec (23.4-35.0) 05/03/24 15:27
Vital Signs
Vital Signs
Temp Pulse Resp BP Pulse Ox
98.2 F 84 20 114/50 96
05/05/24 23:59 05/05/24 23:00 05/05/24 20:14 05/05/24 22:06 05/05/24 23:00
CT Intake/Output/Weight
05/05/24 05/05/24 05/06/24
06:59 18:59 06:59
Intake Total 164.4 / 561.4 81
Output Total 490 / 930 465 / 765 300 / 765
Balance -325.6 / -368.6 -414 / -684 -270 / -684
SaO2: 96
Physical Exam
-
General: Awake and AOx3
Cardiovascular: Regular rate & rhythm, No Murmurs and No Rub
Respiratory: Rales (at bases, no wheeze) and Decreased Breath Sounds
Sternum: Stable
Incision: Clean, Dry and Intact
Extremities: Edema +1
Abdomen: soft, nontender, nondistended, + bowel sounds
Data Reviewed
-
Lab Results: Results Reviewed
Medications: Active Meds Reviewed
Chest X-Ray: Report Reviewed and Image Reviewed
ECG: Report Reviewed and Image Reviewed
[2024-05-06 06:09] LABS: Blood Urea Nitrogen 30 mg/dl (9-20); Calcium 8.7 mg/dl (8.4-10.2); Carbon Dioxide 29 mmol/L (22-30); Chloride 95 mmol/L (98-107); Estimated Creatinine Clearance 112 ml/min; Glucose 150 mg/dl (70-99); Magnesium 2.2 mg/dl (1.6-2.3); Potassium 4.3 mmol/L (3.5-5.1); Sodium 133 mmol/L (135-145); eGFR > 60.00
[2024-05-06] MEDS: TYLENOL 1000 MG PO ×2 (06:11→21:14)
--- NOTE | 2024-05-06 07:30 | PTCARENOTE ---
Assumed care of patient from shift commander RN. AAO x 3, Complains of constipation this am, and feeling sluggish. Discussed with CT MUSICAL PERFORMER and order obtained for miralax. Pt states he is having small BM's but states that its 'not significant'. Otherwise
SR on monitor. Room air 94%, IS encouraged. Affect very flat. Abdomen round, obese, bowel sounds active. Voiding w/o issue. Trace anasarca appreciated. Will monitor.
[2024-05-06] MEDS: PROTONIX PO ×2 (07:43→10:41)
[2024-05-06] MEDS: TIKOSYN 250 MCG PO ×2 (07:43→20:09)
[2024-05-06] MEDS: PRANDIN PO ×2 (07:43→10:41)
[2024-05-06] MEDS: LASIX 40 MG IV (07:43)
[2024-05-06] MEDS: MUCINEX PO ×2 (07:43→10:40)
[2024-05-06] MEDS: GLUCOPHAGE 1000 MG PO ×2 (07:44→16:57)
[2024-05-06] MEDS: SENOKOT-S PO ×3 (07:44→20:11)
[2024-05-06] MEDS: PLAVIX 75 MG PO (07:44)
[2024-05-06] MEDS: PROZAC 20 MG PO (07:44)
[2024-05-06] MEDS: TOPROL XL 12.5 MG PO ×2 (07:44→20:10)
[2024-05-06] MEDS: FEOSOL PO ×2 (07:44→10:41)
[2024-05-06] MEDS: VITAMIN C PO ×2 (07:44→10:42)
[2024-05-06] MEDS: LOW STRENGTH ASPIRIN 81 MG PO (07:44)
[2024-05-06] MEDS: LIDOCAINE 4% PATCH TOPICAL (08:04)
[2024-05-06 08:18] LABS: Glucose - Point of Care 169 mg/dl (70-99)
[2024-05-06] MEDS: NOVOLOG FLEXPEN-MODERATE RESISTANCE SC ×2 (08:41→16:57)
[2024-05-06] MEDS: BACTROBAN 2% OINTMENT 1 APPLIC NASAL ×2 (08:41→20:12)
--- NOTE | 2024-05-06 09:36 | W.DCSUMMARY ---
Discharge Summary
Discharge Data
Date of Admission: 04/28/24
Date of Discharge: 05/07/24
-
Pending Results: No
Hospital Course
Primary care physician: Jacques Sandra
Outpatient holter technician: Graham Partida
Inpatient consultants: [facility] Cardiology, pulmonary supervisor instrument mechanics
Procedures:
1. CABG, encompass maze, left atrial appendage clip
Primary Diagnosis:
1. Triple-vessel coronary disease
Secondary Diagnoses:
1. Paroxysmal atrial fibrillation (on Xarelto)
2. Sick sinus syndrome status post Biotronik pacer
3. Morbid obesity class II (BMI 38.2)
4. Type 2 diabetes (A1c 6.7)
5. Depression
6. Current tobacco abuse
7. GERD
8. Osteoarthritis
9. Acute postop blood loss/Anemia (stable without transfusion)
10. Acute postop hyponatremia, 133
11. Acute postop hypokalemia
12. Heparin resistance
HPI: 68-year-old male presented to [facility] on 04/28/2024 for left heart cath which reported triple-vessel coronary disease. Patient's last dose of Xarelto was 04/27/2024 and he was converted to IV heparin.
Hospital course: Patient was taken the operating room on 05/03/2024. Patient required [place] scope for intubation and AT3 x 2 for heparin resistance. He underwent CABG x 3 with LANGE to LAD, saphenous vein graft to ramus, saphenous vein graft to RPDA,
encompass Maze, and left atrial appendage exclusion #50 mm clip. Biotronik pacer was interrogated IntraOp. Postprocedure DERIK reported an EF of 65% with mild TR and trace to mild MR. Patient received no intraoperative blood and returned to CVICU
on Levophed, Precedex, and insulin. Patient continued on home Tikosyn and aspirin/Plavix were initiated on postop day #1. Statin initiated due to allergy. Repatha will be resumed at discharge. Bilateral pleural and 2 mediastinal chest tubes were
removed on postoperative day #2. Insulin was transitioned to home diabetic regimen with adequate blood sugar control. Right IJ cordis was removed on postop day 3. Patient continued to diurese and weight on discharge was 116.9kg which is baseline.
Lopressor was converted to Toprol XL 25 mg daily for discharge diltiazem was stopped as BP stable. Pepcid converted to Protonix as Xarelto reinstituted for history of PAF. Plavix discontinued. Patient ambulated in halls independently.
Predischarge two-view chest x-ray reported clear lung ochoa, without evidence of lobar pneumonia, pleural effusion, pneumothorax, or decompensated congestive heart failure.Mild elevation of right hemidiaphragm remains unchanged. Patient deemed
stable for discharge home today.
Home medication changes:
Stop:
Diltiazem 360mg HS as BP well controlled
Pepcid changed to Protonix with Xarelto
Discharge Plan
-
Patient Disposition: Home (Routine Discharge)
Discharge Diagnosis/Procedures: CAD s/p CABG
Condition: Fair
Diet: Low Cholesterol, Low Sodium and Diabetic, Carb Controlled
Activity: No strenuous activity
Driving Restrictions: Not until seen by your Dr
Bathing Restrictions: OK to Shower
Other Services: Cardiac Rehab
Specialty Instructions: Weigh Daily- Call MD for wt gain/loss 3 lbs overnight/5 lbs in 1 week
Referrals:
CT Transitional Care Nurse [Outside] (The Cardiothoracic Transitional Care Nurse will call you to set up a visit in 1-2 days.)
Graham Hough MD [Active] - 06/24/24 2:00 pm (*Please note, your appointment w/ Cardiology on 06/03 was cancelled. )
Nolan Sanchez MD [Active] - 06/08/24 2:00 pm
Jacques Sandra Jr., DO [Primary Care Provider] -
Prescriptions:
New
aspirin 81 mg Tablet,Chewable
81 mg PO DAILY Qty: 0 0RF
pantoprazole 40 mg Tablet,Delayed Release (Dr/Ec)
40 mg PO DAILY Qty: 30 1RF
gabapentin 100 mg Capsule
100 mg PO HS Qty: 10 0RF
acetaminophen 325 mg Tablet
650 mg PO Q4HPRN PRN (Reason: mild pain,headache,temp >101F ) Qty: 0 0RF
metoprolol succinate [Toprol XL] 25 mg tablet extended release 24 hr
25 mg PO DAILY Qty: 30 1RF
oxycodone 5 mg Tablet
2.5 mg PO Q4HPRN PRN (Reason: severe pain) Qty: 20 0RF
Continued
desloratadine [Clarinex] 5 MG tablet
5 mg PO DAILYPRN PRN (Reason: allergies)
lorazepam 1 MG tablet
1 mg PO BIDPRN PRN (Reason: anxiety)
latanoprost 0.005 % Drops
1 drp OPHTHALMIC (EYE) HS Qty: 0 0RF
Rx Instructions:
both eyes
rabeprazole [AcipHex] 20 MG tablet,delayed release (DR/EC)
20 mg PO QPM Qty: 0 0RF
dofetilide 250 mcg Capsule
250 mcg PO BID Qty: 0 0RF
fluoxetine 20 mg Tablet
20 mg PO DAILY Qty: 0 0RF
metformin 1,000 MG tablet
1,000 mg PO BID Qty: 0 0RF
Rx Instructions:
HOLD post procedure- OK to resume on 04/09 in AM
montelukast 10 mg Tablet
10 mg PO HS Qty: 0 0RF
pioglitazone 30 mg Tablet
30 mg PO HS Qty: 0 0RF
fenofibrate nanocrystallized 145 MG tablet
145 mg PO HS Qty: 0 0RF
Repatha SureClick 140 mg/mL Pen Injector
140 mg SC Q2W Qty: 0 0RF
repaglinide 1 mg Tablet
1 mg PO TID Qty: 0 0RF
Xarelto 20 mg Tablet
20 mg PO DAILY Qty: 0 0RF
Discontinued
diltiazem HCl 360 MG capsule,extended release 24 hr
360 mg PO HS
famotidine 20 mg Tablet
20 mg PO BID
Discharge Orders:
Discharge Patient (As Directed); Ordered 05/07/24
Ordered By: Anita Amado
Care Plan Goals
Care Plan Goals:
Problem: Readiness for enhanced knowledge related to diagnosis and treatment plan
Goal: Understand your diagnosis and treatment plan needs, including medications if applicable.
Instructions: Know your diagnosis, underlying causes and treatment plan options, including medications if applicable. Consult with your health care team to learn about your diagnosis and treatment plan, including medications if applicable.
Discharge Date and Time
Print Language: GERMAN
--- NOTE | 2024-05-06 09:52 | W.PN.CARDCBS ---
Addendum entered and electronically signed by Andrea Villa MD 05/06/24 11:34:
I saw and examined the patient.
The Cad Operator's note was reviewed and I agree with the note.
Comment: Briefly, 68-year-old man who presented following an abnormal outpatient stress test and was found to have multivessel CAD by coronary angiography and subsequently underwent CABG x 3 earlier this week
Seems to be progressing postoperatively, no cardiac complaints, resting comfortably and tells me he was out of bed to chair earlier today
Appears mildly volume overloaded on exam, agree with continuing IV diuresis
Known history of paroxysmal atrial fibrillation/flutter but is maintaining sinus rhythm on telemetry
Continues on metoprolol and dofetilide
Currently on aspirin/Plavix, would consider transition to Xarelto when considered safe from a surgical standpoint
Rest per Elizabeth Suarez
Original Note:
Today's Communication / Plan
-
Continue postoperative care
Bowel regimen
In sinus rhythm with PVCs, follow QTc
Consider diuresis
Impression / Plan
-
PCP: Dr. Jacques Sandra
Cardiology: Dr. Philip Partida ([facility])
Impression:
Abnormal outpatient stress test 04/14/2024
MV CAD by cath 04/28/24
s/p CABG x3 (AMANDA to LAD, GSV to RI, GSV to RPDA), MAZE, ELAA #50 mm AtriClip 05/03/2024
HTN
DM 2
Paroxysmal Afib
s/p PVI 28mm cryoballoon 03/2017
Paroxysmal typical atrial flutter
PPM, Biotronik 10/2016
Device check ATC office showed primarily SR, not pacer dependent, battery longevity listed at 55% 04/20/2024
Hyperlipidemia
Ongoing tobacco abuse
Smoked 1 PPD since age 13
Presumed obstructive sleep apnea
GERD
Osteoarthritis
Olguin's palsy
Lexiscan stress test 04/14/2024: Modified Prem protocol and only reached 80% MPHR with 3.4 METS of activity, chest pain with stress, predominantly reversible, moderate intensity defect in the basal to apical inferior segments suggesting RCA ischemia
LHC 04/28/2024: Hazy distal LM stenosis, LAD with moderate nonobstructive CAD and an area of proximal aneurysmal disease, ramus with smooth 40% proximal stenosis that appears to be a reasonable distal target, OM�1 with proximal 70% disease and normal
distal flow, distal OM�2 with mid 50% stenosis, RCA is a large-caliber with 90% eccentric stenosis in the distal vessel
Echo 03/29/24: Normal biventricular systolic function, unable to estimate RVSP, no /AR
Echo 04/29/2024: EF 50-55%, aortic sclerosis, trace TR, estimated PAP 30-35mmHg, dilated aortic root, sinus of Valsalva measures 3.9cm
Plan:
-s/p CABG x3 (AMANDA to LAD, GSV to RI, GSV to RPDA), MAZE, JULIANNE clip 05/03/2024.
-slowly progressing
-major issue this morning with constipation, bowel regimen per primary service
-hgb 9.3. continue asa, plavix at present. eventual resume OP xarelto when ok per surgery
-Known h/o paroxysmal afib w/ prior PVI in 2018. QTc stable by EKG 05/04. continue OP tikosyn 250mcg BID. remains in SR with occasional PVCs on review of tele overnight. has biotronik PPM
-Follow volume status. Would consider for diuresis.
-Continue post op care, OOB/IS as able
-LDL 69. Continues on fenofibrate. h/o myalgia w/ all statin medications. On Repatha as OP, would continue.
-d/w nursing
HPI: The patient is a 68-year-old man with a past medical history significant for hypertension, [id number] diabetes, paroxysmal atrial fibrillation on Xarelto, status post pacemaker placement for tachybradycardia syndrome, obesity, and
ongoing smoking who presents for cardiac catheterization after an abnormal stress test. Rohith was held for the procedure.
Progress Note - Work Order Detailer
Subjective
Date of Service: May 06, 2024
Reports pain and breathing improved. Major issue with constipation today.
Objective
Labs:
05/06/24 05:30
05/06/24 05:30
Labs
Hgb 9.3 g/dL (13.0-18.0) L 05/06/24 05:30
Hct 27.6 % (39.0-52.0) L 05/06/24 05:30
Plt Count 258 10^3/uL (130-400) 05/06/24 05:30
PT 16.1 Sec (11.4-14.6) H 05/03/24 15:27
INR 1.26 05/03/24 15:27
APTT 27.1 Sec (23.4-35.0) 05/03/24 15:27
Sodium 133 mmol/L (135-145) L 05/06/24 05:30
Potassium 4.3 mmol/L (3.5-5.1) 05/06/24 05:30
BUN 30 mg/dl (9-20) H 05/06/24 05:30
Creatinine 0.8 mg/dL (0.7-1.3) 05/06/24 05:30
Glucose 150 mg/dl (70-99) H 05/06/24 05:30
Vital Signs and I&O:
Vital Signs
Temp Pulse Resp BP Pulse Ox
98.7 F 88 18 109/53 95
05/06/24 08:00 05/06/24 08:16 05/06/24 08:00 05/06/24 08:16 05/06/24 08:00
Vital Signs
Temp Pulse Resp BP Pulse Ox
98.7 F 88 18 109/53 95
05/06/24 08:00 05/06/24 08:16 05/06/24 08:00 05/06/24 08:16 05/06/24 08:00
Intake & Output
05/04/24 05/05/24 05/06/24 05/07/24
07:59 07:59 07:59 07:59
Intake Total 834.0 / 847.0 548.4 / 562.4 81 / 241 160 / 160
Output Total 1445 / 1490 910 / 975 1090 / 1090
Balance -611.0 / -643.0 -361.6 / -412.6 -1009 / -849 160 / 160
Physical Exam
Physical Exam
GEN: No distress, awake, alert, oriented x3. sitting in chair. obese.
HEENT: supple, anicteric, mmm, eomi
LUNGS: CTA B/L, no wheezes
CV: Reg, S1/S2, no murmur
EXT: No cyanosis, clubbing. 1+ edema of B/L LE
SKIN: Warm, pink, dry. No rash. Sternotomy dressing c/d/i.
--- NOTE | 2024-05-06 10:38 | PTCARENOTE ---
Pt refusing to take am meds this am until he is able to have a 'significant BM' Pt given mirilax but refusing to drink it currently. Was able to persuade pt to take ASA, plavix, and tykosin. Resting in bed after working with cardiac rehab. Will
continue to offer am medications
--- NOTE | 2024-05-06 12:28 | PTCARENOTE ---
Pt announced able to have a large formed BM in toilet and feels like a new Man!!!! Sitting up in the chair, ordering lunch. VSS Assessment otherwise unchanged from prior
[2024-05-06 13:13] LABS: Glucose - Point of Care 205 mg/dl (70-99)
[2024-05-06] MEDS: NOVOLOG FLEXPEN-MODERATE RESISTANCE 3 UNITS SC (13:18)
[2024-05-06] MEDS: PRANDIN 1 MG PO ×2 (13:18→16:57)
[2024-05-06] MEDS: TYLENOL PO (13:18)
[2024-05-06] MEDS: NSS IV (14:53)
--- NOTE | 2024-05-06 15:06 | CM ---
CM following for DC planning needs.
Attempted to meet w/ patient at bedside; patient was sleeping soundly. Will re-attempt at a later time.
Reviewed DC plan. Plan is for home with CT Transitional Care RN once medically stable.
Will follow.
[2024-05-06 16:57] LABS: Glucose - Point of Care 131 mg/dl (70-99)
[2024-05-06] MEDS: ZOFRAN 4 MG IV (19:45)
[2024-05-06] MEDS: MUCINEX 600 MG PO (20:08)
--- NOTE | 2024-05-06 20:31 | PTCARENOTE ---
received pt from previous rn. pt AAOx4, VSS, NSR per tele monitor HR 90s, +pulses, pox 97% on RA lungs diminished, productive cough w/ thick clear sputum, IS 750-1000, pt c/o nausea See MAR, +bs, voids appropriately, all surgical sites intact, PIVx1
intact, plan of care discussed, questions encouraged
[2024-05-06] MEDS: ACTOS 30 MG PO (21:13)
[2024-05-06] MEDS: SINGULAIR 10 MG PO (21:13)
[2024-05-06] MEDS: TRICOR 145 MG PO (21:13)
[2024-05-06] MEDS: XALATAN OPHTHALMIC SOLUTION 1 DROP BOTH EYES (21:14)
[2024-05-06] MEDS: NEURONTIN 100 MG PO (21:14)
[2024-05-06 21:21] LABS: Glucose - Point of Care 157 mg/dl (70-99)
--- NOTE | 2024-05-06 23:50 | PTCARENOTE ---
pt resting comfortably in bed, VSS, NSR per tele monitor HR 70s, assessment remains unchanged otherwise.
[2024-05-07] VITALS (7 sets, daily range): BP systolic 116–144; BP diastolic 48–129; PULSE 83; O2SAT 97–98; BMI 37.5
--- NOTE | 2024-05-07 03:42 | W.PN.CT ---
Today's Communication / Plan
-
-pod #4
-no issues overnight
-am labs are pending
-current meds (ASA, Plavix, Toprol 12.5 bid, Tikosyn 250 bid, Tricor, Glucophage, Prandin, Actos, Protonix). Intolerant of statins. Pt was on Xarelto preop for paf
-diuresed with 40 iv Lasix on 05/06 (UO unknown)
-follow 2v-CXR
-encourage IS, OOB, ambulate
-possible d/c home
Assessment / Plan
-
Assessment:
-S/P Median sternotomy/ CABG x 3 (AMANDA to LAD, GSV to RI, GSV to RPDA)/Endoscopic harvest/prep of LLE GSV/ Endoscopic evaluation of RLE GSV/Encompass MAZE procedure/ELAA w/ 50mm AtriClip, by Dr. Sanchez, 05/03/24, pod#4
-Severe 3v CAD/50% distal LM
-Abnormal stress test
-LVEF 50-55%, improved to 60-65% postop per intraop DERIK
-PAF S/P LA mapping/ablation 04/07/17
-SSS S/P Biotronik PPM, 10/2016
-HTN
-HLD (statin intolerance, on Repatha and Fenofibrate)
-T2DM (hgb A1C 6.7)
-Class 2 obesity (BMI 37.3)
-Suspected MILAD
-Active tobacco use (1ppd since age 13)
-GERD.
-Osteoarthritis.
-Olguin's palsy
-Depression 2/2 to passing away from pancreatic cancer and granddaughter having leukemia
-Acute postop blood loss/Anemia (stable without transfusion)
-Acute postop atelectasis
-Acute postop hypovolemia with subsequent hypervolemia
-Acute postop hyponatremia, 133
-Acute postop hypokalemia
Discussed patient care with: Nursing and Care Team
Subjective
Procedure
S/P Median sternotomy/ CABG x 3 (AMANDA to LAD, GSV to RI, GSV to RPDA)/Endoscopic harvest/prep of LLE GSV/ Endoscopic evaluation of RLE GSV/Encompass MAZE procedure/ELAA w/ 50mm AtriClip, by Dr. Sanchez, 05/03/24
-
Date of Service: May 07, 2024
Objective Data
-
PT 16.1 Sec (11.4-14.6) H 05/03/24 15:27
INR 1.26 05/03/24 15:27
APTT 27.1 Sec (23.4-35.0) 05/03/24 15:27
Vital Signs
Vital Signs
Temp Pulse Resp BP Pulse Ox
98.3 F 80 18 131/68 96
05/06/24 23:49 05/06/24 23:48 05/06/24 23:49 05/06/24 23:48 05/06/24 23:49
CT Intake/Output/Weight
05/06/24 05/06/24 05/07/24
06:59 18:59 06:59
Intake Total 30 / 81 520 / 620 100 / 620
Output Total 625 / 1090 100 / 100
Balance -595 / -1009 420 / 520 100 / 520
SaO2: 96
Physical Exam
-
General: Awake and AOx3
Cardiovascular: Regular rate & rhythm, No Murmurs and No Rub
Respiratory: Rales (at bases, no wheeze) and Decreased Breath Sounds
Sternum: Stable
Incision: Clean, Dry and Intact
Abdomen: soft, nontender, nondistended, + bowel sounds
Extremities: Edema +1
Data Reviewed
-
Lab Results: Results Reviewed
Medications: Active Meds Reviewed
Chest X-Ray: Report Reviewed and Image Reviewed
ECG: Report Reviewed and Image Reviewed
[2024-05-07 04:48] LABS: Hematocrit 26.7 % (39.0-52.0); Hemoglobin 9.2 g/dL (13.0-18.0); Mean Corp Hgb Conc. 34.5 g/dL (33.0-37.0); Mean Corpuscular Hgb 31.5 pg (27.0-31.0); Mean Corpuscular Volume 91.4 fL (80.0-94.0); Mean Platelet Volume 10.5 fL (7.4-10.4); Platelet Count 289 10^3/uL (130-400); Red Blood Cell Count 2.92 10^6/uL (4.70-6.10); Red Cell Dist. Width 13.8 % (11.5-14.5); White Blood Cell Count 12.7 10^3/uL (4.8-10.8)
--- NOTE | 2024-05-07 05:10 | PTCARENOTE ---
routine labs obtained, VSS, NSR per tele monitor, assessment remains unchanged
[2024-05-07 05:16] LABS: Blood Urea Nitrogen 24 mg/dl (9-20); Calcium 8.8 mg/dl (8.4-10.2); Carbon Dioxide 31 mmol/L (22-30); Chloride 99 mmol/L (98-107); Estimated Creatinine Clearance 112 ml/min; Glucose 140 mg/dl (70-99); Magnesium 1.9 mg/dl (1.6-2.3); Potassium 4.2 mmol/L (3.5-5.1); Sodium 134 mmol/L (135-145); eGFR > 60.00
[2024-05-07] MEDS: TYLENOL PO (06:33)
--- NOTE | 2024-05-07 07:30 | PTCARENOTE ---
Assumed care of patient from film processing shift supervisor RN. AAo x3. Sitting up in bed, denies complaint this am. Pain free. SR on monitor. Room air 97%, harsh non productive cough occasional sputum produced. IS to 750, needs encouragement. Abdomen obese,
round, Pt stated he had a 'significant BM' this am already. Voiding w/o issue. Pulses palpable. No edema appreciated. Plan for day discussed.
[2024-05-07] MEDS: FEOSOL 325 MG PO (08:32)
[2024-05-07] MEDS: PROZAC 20 MG PO (08:32)
[2024-05-07] MEDS: TOPROL XL 12.5 MG PO (08:32)
[2024-05-07] MEDS: PRANDIN 1 MG PO (08:32)
[2024-05-07] MEDS: PROTONIX 40 MG PO (08:32)
[2024-05-07] MEDS: LOW STRENGTH ASPIRIN 81 MG PO (08:32)
[2024-05-07] MEDS: SENOKOT-S 1 TABLET PO (08:32)
[2024-05-07] MEDS: PLAVIX 75 MG PO (08:32)
[2024-05-07] MEDS: VITAMIN C 500 MG PO (08:33)
[2024-05-07] MEDS: LIDOCAINE 4% PATCH TOPICAL (08:33)
[2024-05-07] MEDS: BACTROBAN 2% OINTMENT 1 APPLIC NASAL (08:33)
[2024-05-07] MEDS: TIKOSYN 250 MCG PO (08:33)
[2024-05-07] MEDS: GLUCOPHAGE 1000 MG PO (08:33)
[2024-05-07] MEDS: NOVOLOG FLEXPEN-MODERATE RESISTANCE SC ×2 (08:33→13:04)
[2024-05-07] MEDS: MUCINEX 600 MG PO (08:33)
--- NOTE | 2024-05-07 10:36 | CM ---
CM following for DC planning needs.
Met w/ patient at bedside. Pt. awake, feeling well. He is hopeful for DC to home today. He offers no concerns or needs.
We reviewed DC plan for home w/ CT Transitional Care RN. Reviewed post op MD appointments.
Plan is for home w/ CT Transitional Care RN.
Will remain avail.
[2024-05-07] MEDS: PRANDIN PO (13:05)
--- NOTE | 2024-05-07 13:41 | PTCARENOTE ---
Assisted into shower by RN. Tolerated w/o issue. VSS. Assessment otherwise unchanged from prior
--- NOTE | 2024-05-07 16:01 | PTCARENOTE ---
Discharge instructions reviewed with patient and friend. Questions answered. INTs remvoed. after pt showered using CHG soap.
== END 2024-05-07 16:07 | disposition home or self-care (01) | DRG 234 ==
LOC: CVICU 10:18
PROVIDERS: Anesthesiology; Clinical Nurse Specialist Acute Care; Internal Medicine Cardiovascular Disease; Nurse Practitioner; Nurse Practitioner Adult Health; Physician Assistant; Physician Assistant Medical; ADMITTING PHYSICIAN Internal Medicine Interventional Cardiology; ATTENDING PHYSICIAN Thoracic Surgery (Cardiothoracic Vascular Surgery); CONSULT PHYSICIAN Internal Medicine Critical Care Medicine; PRIMARYCARE PHYSICIAN Family Medicine; REFERRING PHYSICIAN Internal Medicine Cardiovascular Disease
PROC: B2111ZZ Fluoroscopy of Multiple Coronary Arteries using Low Osmolar Contrast (ICD-10-PCS; 2024-04-28)
PROC: 4A023N7 Measurement of Cardiac Sampling and Pressure, Left Heart, Percutaneous Approach (ICD-10-PCS; 2024-04-28)
PROC: 02580ZZ Destruction of Conduction Mechanism, Open Approach (ICD-10-PCS; 2024-05-03)
PROC: 06BQ4ZZ Excision of Left Saphenous Vein, Percutaneous Endoscopic Approach (ICD-10-PCS; 2024-05-03)
PROC: 021109W Bypass Coronary Artery, Two Arteries from Aorta with Autologous Venous Tissue, Open Approach (ICD-10-PCS; 2024-05-03)
PROC: 5A1221Z Performance of Cardiac Output, Continuous (ICD-10-PCS; 2024-05-03)
PROC: 02100ZC Bypass Coronary Artery, One Artery from Thoracic Artery, Open Approach (ICD-10-PCS; 2024-05-03)
PROC: 06BP4ZZ Excision of Right Saphenous Vein, Percutaneous Endoscopic Approach (ICD-10-PCS; 2024-05-03)
PROC: B24BZZ4 Ultrasonography of Heart with Aorta, Transesophageal (ICD-10-PCS; 2024-05-03)
PROC: 02L70CK Occlusion of Left Atrial Appendage with Extraluminal Device, Open Approach (ICD-10-PCS; 2024-05-03)
DX: I25.10 Atherosclerotic heart disease of native coronary artery without angina pectoris (principal); D62 Acute posthemorrhagic anemia; E87.1 Hypo-osmolality and hyponatremia; I48.3 Typical atrial flutter; J98.11 Atelectasis; Q21.10 Atrial septal defect, unspecified; I10 Essential (primary) hypertension; I48.0 Paroxysmal atrial fibrillation; F17.210 Nicotine dependence, cigarettes, uncomplicated; E66.812 Obesity, class 2; E66.01 Morbid (severe) obesity due to excess calories; E78.5 Hyperlipidemia, unspecified; E11.9 Type 2 diabetes mellitus without complications; M19.90 Unspecified osteoarthritis, unspecified site; G47.33 Obstructive sleep apnea (adult) (pediatric); K21.9 Gastro-esophageal reflux disease without esophagitis; E87.6 Hypokalemia; I49.5 Sick sinus syndrome; E87.70 Fluid overload, unspecified; E86.1 Hypovolemia; M81.0 Age-related osteoporosis without current pathological fracture; F32.A Depression, unspecified; Z68.37 Body mass index [BMI] 37.0-37.9, adult; Z79.01 Long term (current) use of anticoagulants; Z79.84 Long term (current) use of oral hypoglycemic drugs; Z79.899 Other long term (current) drug therapy; Z95.0 Presence of cardiac pacemaker
CPT/HCPCS: 94727; 94729; 33259; 71045; 71046; 71250; 80048; 80053; 80061; 81003; 82248; 82330; 82565; 82805; 82947; 82962; 83036; 83735; 84132; 84302; 84520; 85014; 85018; 85027; 85049; 85610; 85730; 86850; 86900; 86901; 86920; 88738; 93005; 93306; 93312; 93320; 93325; 93458; 93880; 94002; 94060; 94640; C1713; C1894; J7197; P9045; Q9967